=== PATIENT | female | born 1940 | race Caucasian/White ===

== ENCOUNTER 2017-02-03 16:12 | Emergency (ER) | payer OTHER ==
[~2017-02-03] VITALS: Ht 160 cm; Wt 59.0 kg
[2017-02-03] MEDS ORDERED: fentaNYL PF VIAL 100 MCG/2 ML VIAL IV ONE (16:45)
[2017-02-03] MEDS ORDERED: ONDANSETRON PF 4 MG/2 ML VIAL. IV ONE ×2 (16:45→18:15)
[2017-02-03 16:59] LABS: INR 3.1 (0.8-1.1); PROTHROMBIN TIME PATIENT 29.7 SEC (11.7-14.0)
[2017-02-03 17:06] LABS: HEMATOCRIT 38.7 % (36.0-47.0); HEMOGLOBIN 12.9 g/dL (12.0-15.5); WHITE BLOOD COUNT 8.3 x10^3/uL (4.0-11.0)
[2017-02-03 17:17] LABS: CREATININE 0.8 mg/dL (0.6-1.0); GFR 69.6; POTASSIUM 4.2 mmol/L (3.5-5.1)
--- NOTE | 2017-02-03 17:32 | ED.ADGEN ---
Past Medical History Past Medical History: COPD, Diabetes-Type II, Hypertension Past Surgical History: No Surgical History Alcohol Use: None Drug Use: None Adult General Chief Complaint Chief Complaint: MECHANICAL FALL HPI HPI Patient is a 76 year old with history of paroxysmal A. fib currently on Coumadin, COPD and hypertension who presents with mechanical fall while outdoors. Patient fell landing on her left arm and striking her head off of steps. Patient states she caught her foot on her steps while attempting to walk indoors. Denies loss of consciousness or headache. Patient has superficial abrasion over forehead. She reports left anterior shoulder/proximal humeral pain , tenderness. There is no gross deformity or subluxation. Range of motion testing is limited due to patient pain. Patient reports posterior neck pain, denies chest pain, abdominal pain, hip pain or lower extremity pain. Patient denies any medical symptoms prior to fall. No other acute injuries or complaints.] Review of Systems Review of Systems Review symptoms as per. All other review symptoms are negative. Current Medications Current Medications Current Medications Medications (Trade) Dose Ordered Sig/[facility] Start Time Stop Time Status Last Admin Dose Admin Fentanyl Citrate (Fentanyl 2ml Vial) 50 mcg 1X ONCE 02/03/17 16:45 02/03/17 16:46 DC 02/03/17 16:41 50 MCG Ondansetron HCl (Zofran) 4 mg 1X ONCE 02/03/17 18:15 02/03/17 18:16 DC 02/03/17 18:12 4 MG Allergies Allergies Allergies Coded Allergies Type Severity Reaction Last Updated Verified phenazopyridine Allergy Intermediate 12/07/15 Yes Physical Exam Physical Exam Constitutional: Well developed, well nourished, no acute distress, non-toxic appearance. HENT: Normocephalic, atraumatic, bilateral external ears normal, oropharynx moist. Eyes: PERRLA, EOMI. Neck: Normal range of motion, midline upper cervical pain, no tenderness swelling or step-off. Cardiovascular:Heart rate regular rhythm, no murmur. Lungs & Thorax: Bilateral breath sounds clear to auscultation, no subcutaneous emphysema, crepitus. Abdomen: Bowel sounds normal, soft, no tenderness. Skin: Warm, superficial skin tears without active bleeding. Back: No midline spinal tenderness. Extremities: Left shoulder/humerus pain, tenderness, range of motion testing not performed secondary to patient discomfort. No obvious deformity or dislocation. No posterior elbow, forearm or wrist pain or tenderness or deformity. No hip pain or tenderness. Neurologic: Alert and oriented X 3, normal motor function, normal sensory function, no focal deficits noted. Psychologic: Affect normal, judgement normal, mood normal. Current Patient Data Vital Signs Vital Signs Date Time Temp Pulse Resp B/P (MAP) Pulse Ox O2 Delivery O2 Flow Rate FiO2 02/03/17 19:00 77 17 186/79 (114) 97 Room Air 02/03/17 16:19 98.5 98.5 Lab Values Laboratory Tests Test 02/03/17 16:28 02/03/17 17:00 Prothrombin Time 29.7 SEC (11.7-14.0) H Prothrombin Time INR 3.1 (0.8-1.1) H White Blood Count 8.3 x10^3/uL (4.0-11.0) Hemoglobin 12.9 g/dL (12.0-15.5) Hematocrit 38.7 % (36.0-47.0) Platelet Count 204 x10^3/uL (140-400) Sodium Level 144 mmol/L (136-145) Potassium Level 4.2 mmol/L (3.5-5.1) Chloride Level 107 mmol/L (98-107) Carbon Dioxide Level 32 mmol/L (21-32) Anion Gap 5 (6-14) L Blood Urea Nitrogen 15 mg/dL (7-20) Creatinine 0.8 mg/dL (0.6-1.0) Estimated GFR (Cockcroft-Gault) 69.6 Glucose Level 169 mg/dL (70-99) H Calcium Level 10.0 mg/dL (8.5-10.1) Laboratory Tests 02/03/17 17:00 Laboratory Tests 02/03/17 17:00 EKG EKG [] Radiology/Procedures Radiology/Procedures [CT head/cervical spine: no acute intracranial or cervical spine injury. Left shoulder/chest x-ray: Left humeral neck fracture, no obvious thoracic injury.] Course & Med Decision Making Course & Med Decision Making Pertinent Labs and Imaging studies reviewed. (See chart for details) [Patient with left shoulder fracture without neurovascular deficitmechanical fall. Patient placed in sling for comfort. Pain control. CT head/cervical spine , chest x-ray does not show evidence of injury. Patient referred to PCP for further guidance regarding continuance of coumadin and on-call orthopedic surgeon. typical closed head injury instructions and return precautions reviewed.Patient and family members verbalized understanding and agreement discharge instructions prior to departure.] Hector Disclaimer Dragon Disclaimer This electronic medical record was generated, in whole or in part, using a voice recognition dictation system. ALIZE MCDANIELS DO Feb 03, 2017 17:32
--- NOTE | 2017-02-03 18:14 | RAD ---
CT Head W/O Contrast: History: TRAUMA, FALL, HIT HEAD, NECK PAIN, NO PRIORS Comparison: none Axial images were obtained without contrast. The parikh and white matter appears normal and symmetrical for the patients age. There is no mass effect, extraaxial fluid collections or hydrocephalus. There is no gross bleed. There is no focal loss of parikh-white matter distinction to suggest acute ischemia, i.e. stroke. Impression: No acute findings. End impression CT C-Spine without contrast: Clinical History: TRAUMA, FALL, HIT HEAD, NECK PAIN, NO PRIORS Technique: Axial helical images of the cervical spine were obtained without contrast, axial coronal and sagittal reconstruction was performed. Findings: There is no loss of vertebral body stature. There is no prevertebral soft tissue swelling. The vertebral bodies are well aligned. The C1-C2 relationship is normal. The visualized osseous structures appear normal. Evaluation of the central canal is limited without contrast. There is multiple posterior disc bulges resulting in flattening of the thecal sac. There does not appear to be gross flattening of the cervical cord. There is facet arthropathy and a posterior lateral osteophytic ridge resulting in severe narrowing of the right neuroforamen at C3-C4. Impression: No acute findings. Clinical correlation suggested. PQRS Compliance Statement: One or more of the following individualized dose reduction techniques were utilized for this examination: 1. Automated exposure control 2. Adjustment of the mA and/or kV according to patient size 3. Use of iterative reconstruction technique Electronically signed by: Los Jean III, MD (02/03/2017 6:11 PM) [facility]
[2017-02-03 19:00] VITALS: BP 186/79
--- NOTE | 2017-02-04 09:18 | RAD ---
Indication trauma. Fall. Left-sided pain. A single view of the chest was obtained and is compared to an examination 12/07/2015. Somewhat tortuous thoracic aorta is noted similar to the previous exam. There is no consolidated pneumonia. Heart size is unchanged. There is no congestive heart failure. There is no pneumothorax or significant pleural fluid. A definite bony abnormality is not seen. IMPRESSION: No acute or focal process is seen in the chest
--- NOTE | 2017-02-04 09:26 | RAD ---
Indication pain secondary to a fall. Internally and externally rotated views of both shoulders as well as a Y view were obtained. Views of the right shoulder demonstrate minimal degenerative change at the AC joint. A fracture or acute finding is not apparent. Views of the left shoulder demonstrate a mildly impacted, traumatic, fracture of the humeral neck. IMPRESSION: No acute finding seen on the right. Mildly impacted left humeral neck fracture
--- NOTE | 2017-02-04 09:43 | RAD ---
Indication fall, pain. AP and lateral views of the left humerus were obtained. Known traumatic fracture involving the left humeral neck is noted. No additional bony abnormality is seen. IMPRESSION: Fractured left humeral neck
== END 2017-02-03 19:25 | disposition home or self-care (01) ==
LOC: ER 16:12
DX: S42.92XA Fracture of left shoulder girdle, part unspecified, initial encounter for closed fracture (principal); S00.91XA Abrasion of unspecified part of head, initial encounter; M54.2 Cervicalgia; E11.9 Type 2 diabetes mellitus without complications; I10 Essential (primary) hypertension; I48.0 Paroxysmal atrial fibrillation; J44.9 Chronic obstructive pulmonary disease, unspecified; W10.9XXA Fall (on) (from) unspecified stairs and steps, initial encounter; Y93.89 Activity, other specified; Y92.89 Other specified places as the place of occurrence of the external cause; Y99.8 Other external cause status; Z88.8 Allergy status to other drugs, medicaments and biological substances
CPT/HCPCS: 36415; 70450; 71010; 72125; 73030; 73060; 80048; 85027; 85610; 96374; 96375; 96376; 99285; J2405; J3010

== ENCOUNTER → 2018-09-25 | Outpatient (CLI) | payer OTHER ==
[~2018-09-25] MED LIST: REGADENOSON 0.4 MG/5 ML DISP.SYRIN. IV ONE
--- NOTE | 2018-09-26 11:47 | CARD ---
MR#: [id number] Date of Study: 09/26/2018 Ordering Physician: CLAYTON CORBIN, Referring Physician: CLAYTON CORBIN, Tech: Lexie Hunt APPROVED REPORT EXAM: Two-dimensional and M-mode echocardiogram with Doppler and color Doppler. Other Information Quality : AverageHR: 75bpm INDICATION Atrial Fibrillation 2D DIMENSIONS RVDd4.1 (2.9-3.5cm)Left Atrium(2D)4.7 (1.6-4.0cm) IVSd1.3 (0.7-1.1cm)Aortic Root(2D)3.4 (2.0-3.7cm) LVDd4.7 (3.9-5.9cm)LVOT Diameter2.2 (1.8-2.4cm) PWd1.3 (0.7-1.1cm)LVDs2.9 (2.5-4.0cm) FS (%) 39.0 %SV71.8 ml LVEF(%)69.4 (>50%) Aortic Valve AoV Peak Juan Manuel.132.2cm/sAoV VTI28.9cm AO Peak GR.7.0mmHgLVOT Peak Juan Manuel.73.3cm/s LVOT VTI 15.20cmAO Mean GR.4mmHg LUIZ (VMAX)1.70hv0XNG (VTI)2.04cm2 Mitral Valve MV E Xkdwjqtn08.1cm/sMV DECEL RGHU781rc MV A Owwhkpiz79.3cm/sMV DIU97bq E/A Ratio0.6MVA (PHT)4.99cm2 TDI E/Lateral E'5.6E/Medial E'7.7 Pulmonary Valve PV Peak Ufentzqs492.2cm/sPV Peak Grad.7mmHg Tricuspid Valve TR P. Vsqmkeqp540ai/sRAP QDZXMNUR7awVd TR Peak Gr.99lqXqRMIR08ptDe Pulmonary Vein S1 Gaztneya48.6cm/sD2 Ocwganae62.3cm/s PVa matmpyvi768lzpc LEFT VENTRICLE The left ventricle is normal size. There is moderate concentric left ventricular hypertrophy. The lef t ventricular systolic function is normal. The Ejection Fraction is 60-65%. There is normal LV segmen geri wall motion. Transmitral Doppler flow pattern is Grade I-abnormal relaxation pattern. RIGHT VENTRICLE The right ventricle is normal size. There is normal right ventricular wall thickness. The right ventr icular systolic function is normal. ATRIA The left atrium size is normal. The right atrium is mildly dilated. The atrial septum is aneurysmal. AORTIC VALVE The aortic valve is thickened but opens well. Doppler and Color Flow revealed no significant aortic r egurgitation. There is no significant aortic valvular stenosis. MITRAL VALVE The mitral valve is normal in structure and function. There is no evidence of mitral valve prolapse. There is no mitral valve stenosis. Doppler and Color-flow revealed trace mitral regurgitation. TRICUSPID VALVE The tricuspid valve is normal in structure and function. Doppler and Color Flow revealed trace to mil d tricuspid regurgitation. There is no tricuspid valve stenosis. PULMONIC VALVE The pulmonary valve is normal in structure and function. Doppler and Color Flow revealed trace to mil d pulmonic valvular regurgitation. GREAT VESSELS The aortic root is normal in size. The IVC is normal in size and collapses >50% with inspiration. PERICARDIAL EFFUSION There is no evidence of significant pericardial effusion. Critical Notification Critical Value: No <Conclusion> The left ventricular systolic function is normal. The Ejection Fraction is 60-65%. There is normal LV segmental wall motion. Transmitral Doppler flow pattern is Grade I-abnormal relaxation pattern. Trace mitral regurgitation. Trace to mild tricuspid regurgitation. There is no evidence of significant pericardial effusion. Signed by : Clayton Corbin, Electronically Approved : 09/26/2018 11:46:30
--- NOTE | 2018-09-26 12:22 | RAD ---
MR#: [id number] Date of Study: 09/26/2018 Ordering Physician: CLAYTON YUN, Referring Physician: OXANA SHAH Tech: RT Angelina (Eleazar) (N) APPROVED REPORT Test Type: Pharmacological Stress Nurse/Tech: Rodrigo Navarrete RN Test Indications: paraxysmal afib Cardiac History: a fib, CHF, HTN Medical History: COPD Resting ECG: Afib; baseline noted slight ST depression in leads V2, V3, SR with PAC's Resting Heart Rate: 71 bpm Pretest Chest Pain: No chest pain Nurse/Tech Notes Irregular heart tones. Lungs sound clear. Consent: The procedure was explained to the patient in lay terms. Informed consent was witnessed. Supa eout was entered into [employer]. History and Stress Test performed by [facility]. Details Pharmacologic stress testing was performed using 0.4mg per 5ml of regadenoson given intravenously ove r 7-10 seconds. Stress Symptoms Pt c/o chest pressure 5/10 in stage R at 00:55; decreased 3/10 at stage R at 01:55; resolved by stage R at 04:55. Pt also c/o PEREZ and feeling flushed, and SOA. POST EXERCISE Reason for Termination: Infusion complete Max HR: 87 bpm Max Blood Pressure: 161/56mmHg Blood Pressure response to exercise: Normal blood pressure response during stress. Heart Rate response to exercise: normal Chest Pain: Yes. see stress symptoms above Arrhythmia: No. [address] Change: Yes. ST depression and elevation slight increase from baseline INTERPRETATION Stress EKG Conclusion: Baseline EKG showed sinus rhythm with PAC's. Non-diagnostic changes at peak s tress. No arrhythmias. Imaging Protocol IMAGE PROTOCOL: Rest Tc-99m/stress Tc-99m 2 days Rest: Stress: Viability: Radiopharm.Tc99m ZivrkokisVp68p Sestamibi Utcn12iKx 33mCi Duration 15min. 15min. Img Date 09/25/2018 09/26/2018 Inj-Img Usym04mcm. 60min. Rest Admin Site:IV - Right ForearmAdministrator:PAT Miller, ARRT (R)(N) Stress Admin Site: Endoscopy Rn: Constantino Reyes [facility] STRESS DATA End Diast. Vol.143.0mlLVEDV index BSA70.0ml End Syst. Vol.64.0mlLVESV index BSA32.0ml Myocardial Trpk602.0gEject. Cfswjuhy10.0% Stress Scores Regional WT2.00Summed WT18.00 Regional WM0.00Summed WM5.00 Study quality was good. Left Ventricular size was Normal at Rest and Stress. Lung uptake was . Left Ventricular ejection fraction is 55%. The rest and stress images show normal perfusion, normal contraction and thickening. LV Perf. Quant 17 Seg. SSS3.00 17 Seg. SRS0.00 17 Seg. SDS3.00 Stress Defect Extent (% LAD)0.00Rest Defect Extent (% LAD)0.00Rev. Defect Extent (% LAD)0.00 Stress Defect Extent (% LCX) 2.50Rest Defect Extent (% LCX)0.00Rev. Defect Extent (% LCX)2.50 Stress Defect Extent (% RCA)14.40Rest Defect Extent (% RCA)0.00Rev. Defect Extent (% RCA)12.20 Stress Defect Extent (% STEPHANIA)5.20Rest Defect Extent (% STEPHANIA)0.00Rev. Defect Extent (% STEPHANIA)4.80 Conclusion 1. Regadenoson cardioisotope stress test did not show any evidence of ischemia or infarct. 2. Normal left ventricular systolic function with ejection fraction calculated at 55%. 3. Low risk for cardiac events. Signed by : Clayton Yun, Electronically Approved : 09/26/2018 12:21:45
== END | disposition home or self-care (01) ==
LOC: NM 08:07
PROVIDERS: ATTEND Internal Medicine Cardiovascular Disease
DX: I48.0 Paroxysmal atrial fibrillation (principal); I11.0 Hypertensive heart disease with heart failure; I50.9 Heart failure, unspecified; J44.9 Chronic obstructive pulmonary disease, unspecified; I49.3 Ventricular premature depolarization; R00.8 Other abnormalities of heart beat
CPT/HCPCS: 78452; 96374; A9500; 93017; 93306; 96376; J2785

== ENCOUNTER → 2019-05-06 | Outpatient (CLI) | payer OTHER ==
--- NOTE | 2019-05-06 11:03 | RAD ---
MR#: [id number] Date of Study: 05/06/2019 Ordering Physician: CLAYTON YUN, Referring Physician: CLAYTON YUN, Tech: Moises Ly MBA, RDMS, RVT, RDCS, RTR APPROVED REPORT Patient Location : OUT-PATIENT Indications Lower Extremity Edema : Bilateral Findings Technically difficult study. The right great saphenous vein measures 4.5 mm in the left great saphenous vein measures 8 mm. Based on color Doppler and spectral images no obvious evidence of reflux is noted. The bilateral lesser sap henous veins do not show any evidence of reflux. Critical Notification Critical Value: No <Conclusion> No significant reflux noted in the bilateral greater and lesser saphenous veins Signed by : Venancio Duenas, Electronically Approved : 05/06/2019 11:03:20
== END | disposition home or self-care (01) ==
LOC: US 09:41
PROVIDERS: ATTEND Internal Medicine Cardiovascular Disease
DX: R60.0 Localized edema (principal)
CPT/HCPCS: 93970

== ENCOUNTER 2019-07-15 20:23 | Inpatient (IN) | payer MEDICARE, OTHER ==
[~2019-07-15] VITALS: Ht 160 cm; Wt 106.2 kg
[2019-07-15] MEDS ORDERED: ASPIRIN CHEWABLE 81 MG TABLET. PO ONE (20:30)
[2019-07-15] MEDS: NITROGLYCERIN SUBLINGUAL 0.4 MG BOTTLE OF 25. SL PRN ×3 (21:10→21:20)
[2019-07-15 21:57] LABS: BASO # 0.1 x10^3/uL (0.0-0.2); BASO % 1 % (0-3); EOS # 0.2 x10^3/uL (0.0-0.7); EOS % 3 % (0-3); HEMATOCRIT 39.7 % (36.0-47.0); LYMPH # 1.3 x10^3/uL (1.0-4.8); LYMPH % 20 % (24-48); MEAN CORPUSCULAR HEMOGLOBIN 31 pg (25-35); MEAN CORPUSCULAR HGB CONC 33 g/dL (31-37); MEAN CORPUSCULAR VOLUME 93 fL (79-100); MONO # 0.7 x10^3/uL (0.0-1.1); MONO % 11 % (0-9); NEUT % 65 % (31-73); PLATELET COUNT 214 x10^3/uL (140-400); RED BLOOD COUNT 4.26 x10^6/uL (3.50-5.40); RED CELL DISTRIBUTION WIDTH 15.3 % (11.5-14.5); WHITE BLOOD COUNT 6.3 x10^3/uL (4.0-11.0)
--- NOTE | 2019-07-15 21:58 | PHYS DOC ---
Past Medical History Past Medical History: A-Fib, COPD, Diabetes-Type II, DVT, Hypertension Past Surgical History: No Surgical History Alcohol Use: None Drug Use: None Adult General Chief Complaint Chief Complaint: CHEST PAIN HPI HPI 79-year-old female presents to the emergency department with complaints of chest pressure, shortness of breath. She states this started this afternoon and just has not went away. Patient's underlying history of atrial fibrillation, DVT, COPD, hypertension, diabetes. She is on chronic anticoagulation. He makes her pain worse, nothing makes her pain better. Attempted nitroglycerin in the emergency department however has had 3 without improvement. Morphine 2 mg IVx 1 in ER Review of Systems Review of Systems Constitutional: Denies fever or chills [] Respiratory: Denies cough or shortness of breath [] Cardiovascular: No additional information not addressed in HPI [] GI: Denies abdominal pain, nausea, vomiting, bloody stools or diarrhea [] : Denies dysuria or hematuria [] Musculoskeletal: Denies back pain or joint pain [] Neurologic: Denies headache, focal weakness or sensory changes [] All other systems were reviewed and found to be within normal limits, except as documented in this note. Current Medications Current Medications Current Medications Medications (Trade) Dose Ordered Sig/[facility] Start Time Stop Time Status Last Admin Dose Admin Aspirin (Children'S Aspirin) 324 mg 1X ONCE 07/15/19 20:30 07/15/19 20:33 DC 07/15/19 21:01 324 MG Morphine Sulfate (Morphine Sulfate) 2 mg 1X ONCE 07/15/19 22:30 07/15/19 22:31 DC Nitroglycerin (Nitrostat) 0.4 mg PRN Q5MIN PRN 07/15/19 20:30 07/16/19 20:29 07/15/19 21:20 0.4 MG Allergies Allergies Allergies Coded Allergies Type Severity Reaction Last Updated Verified phenazopyridine Allergy Intermediate 12/07/15 Yes Physical Exam Physical Exam Constitutional: Well developed, well nourished, no acute distress, non-toxic ap pearance. [] HENT: Normocephalic, atraumatic, bilateral external ears normal, oropharynx moist, no oral exudates, nose normal. [] Eyes: PERRLA, EOMI, conjunctiva normal, no discharge. [] [] Cardiovascular:Heart rate regular rhythm, no murmur [] Lungs & Thorax: Bilateral breath sounds clear to auscultation [] Abdomen: Bowel sounds normal, soft, no tenderness, no masses, no pulsatile masses. [] Skin: Warm, dry, no erythema, no rash. [] Extremities: No tenderness, no edema. [] Neurologic: Alert and oriented X 3, no focal deficits noted. [] Psychologic: Affect normal, judgement normal, mood normal. [] Current Patient Data Vital Signs Vital Signs Date Time Temp Pulse Resp B/P (MAP) Pulse Ox O2 Delivery O2 Flow Rate FiO2 07/15/19 21:20 74 185/82 07/15/19 20:41 97.8 22 92 Room Air 97.8 Lab Values Laboratory Tests Test 07/15/19 21:30 White Blood Count 6.3 x10^3/uL (4.0-11.0) Red Blood Count 4.26 x10^6/uL (3.50-5.40) Hemoglobin 13.0 g/dL (12.0-15.5) Hematocrit 39.7 % (36.0-47.0) Mean Corpuscular Volume 93 fL (79-100) Mean Corpuscular Hemoglobin 31 pg (25-35) Mean Corpuscular Hemoglobin Concent 33 g/dL (31-37) Red Cell Distribution Width 15.3 % (11.5-14.5) H Platelet Count 214 x10^3/uL (140-400) Neutrophils (%) (Auto) 65 % (31-73) Lymphocytes (%) (Auto) 20 % (24-48) L Monocytes (%) (Auto) 11 % (0-9) H Eosinophils (%) (Auto) 3 % (0-3) Basophils (%) (Auto) 1 % (0-3) Neutrophils # (Auto) 4.0 x10^3/uL (1.8-7.7) Lymphocytes # (Auto) 1.3 x10^3/uL (1.0-4.8) Monocytes # (Auto) 0.7 x10^3/uL (0.0-1.1) Eosinophils # (Auto) 0.2 x10^3/uL (0.0-0.7) Basophils # (Auto) 0.1 x10^3/uL (0.0-0.2) Prothrombin Time 23.7 SEC (11.7-14.0) H Prothrombin Time INR 2.1 (0.8-1.1) H Sodium Level 141 mmol/L (136-145) Potassium Level 4.0 mmol/L (3.5-5.1) Chloride Level 105 mmol/L (98-107) Carbon Dioxide Level 33 mmol/L (21-32) H Anion Gap 3 (6-14) L Blood Urea Nitrogen 11 mg/dL (7-20) Creatinine 0.7 mg/dL (0.6-1.0) Estimated GFR (Cockcroft-Gault) 80.5 BUN/Creatinine Ratio 16 (6-20) Glucose Level 141 mg/dL (70-99) H Calcium Level 10.3 mg/dL (8.5-10.1) H Magnesium Level Pending Total Bilirubin Pending Aspartate Amino Transferase (AST) Pending Alanine Aminotransferase (ALT) Pending Alkaline Phosphatase Pending Troponin I Quantitative < 0.017 ng/mL (0.000-0.055) UZ-Nxo-G-Type Natriuretic Peptide 492 pg/mL (0-449) H Total Protein Pending Albumin Pending Albumin/Globulin Ratio Pending Laboratory Tests 07/15/19 21:30 Laboratory Tests 07/15/19 21:30 EKG EKG EKG reviewed, 2032 - no stemi, NSR, 76, LAD[] Radiology/Procedures Radiology/Procedures [] Course & Med Decision Making Course & Med Decision Making Pertinent Labs and Imaging studies reviewed. (See chart for details) []79-year-old female presents to the emergency department with complaints of chest pressure, shortness of breath. She states this started this afternoon and just has not went away. Patient's underlying history of atrial fibrillation, DVT, COPD, hypertension, diabetes. She is on chronic anticoagulation. He makes her pain worse, nothing makes her pain better. Attempted nitroglycerin in the emergency department however has had 3 without improvement. Morphine 2 mg IVx 1 in ER Labs/Imaging reviewed Trop within normal limits EKG reviewed, no acute findings Patietn provided with NTG x 3 without relief, Morphine 2mg IV x1 Reassessment - pain improved HEART Score 6 Recommend observation, trend cardiac enzymes Dragon Disclaimer Dragon Disclaimer This electronic medical record was generated, in whole or in part, using a voice recognition dictation system. The HEART Score for CP Pts HEART Score for Chest Pain: HEART Score for Chest Pain Response (Comments) Value History Moderately Suspicious 1 ECG Nonspecific Repolarizatio 1 Age > 65 2 Risk Factors >3 Risk Factors or Hx CAD 2 Troponin < Normal Limit 0 Total 6 Risk Factors: Risk Factors: DM, Current or recent (<one month) smoker, HTN, HLP, family history of CAD, obesity. Risk Scores: Score 0 - 3: 2.5% MACE over next 6 weeks - Discharge Home Score 4 - 6: 20.3% MACE over next 6 weeks - Admit for Clinical Observation Score 7 - 10: 72.7% MACE over next 6 weeks - Early Invasive Strategies Departure Departure Impression: Primary Impression: Chest pain Additional Impressions: Hypertension Diabetes Disposition: 09 ADMITTED INPATIENT Admitting Physician: HIMRenzo Condition: STABLE Referrals: LEONCIO OSEGUERA MD (PCP) Problem Qualifiers Primary Impression: Chest pain Chest pain type: unspecified Qualified Codes: R07.9 - Chest pain, unspecified Additional Impressions: Hypertension Hypertension type: essential hypertension Qualified Codes: I10 - Essential (primary) hypertension Diabetes Diabetes mellitus type: other specified (including IGGY) Diabetes mellitus half-way insulin use: unspecified intermediate school teacher insulin use status Diabetes mellitus complication status: without complication Qualified Codes: E13.9 - Other specified diabetes mellitus without complications HILLARY DA SILVA MD Jul 15, 2019 21:58
[2019-07-15 22:09] LABS: CALCIUM 10.3 mg/dL (8.5-10.1); CREATININE 0.7 mg/dL (0.6-1.0); GFR 80.5
[2019-07-15 22:14] LABS: ALBUMIN/GLOBULIN RATIO 0.8 (1.0-1.7); MAGNESIUM 1.9 mg/dL (1.8-2.4); TOTAL PROTEIN 6.9 g/dL (6.4-8.2)
[2019-07-15 22:19] LABS: PROTHROMBIN TIME PATIENT 23.7 SEC (11.7-14.0)
[2019-07-15] MEDS ORDERED: MORPHINE SULFATE 2 MG/ML VIAL. IV ONE (22:30)
[2019-07-15 22:47] LABS: TOTAL BILIRUBIN 0.7 mg/dL (0.2-1.0)
[2019-07-15] MEDS ORDERED: MORPHINE SULFATE 2 MG/ML VIAL. IV PRN (23:30)
[2019-07-15] MEDS ORDERED: NITROGLYCERIN SUBLINGUAL 0.4 MG BOTTLE OF 25. SL PRN (23:30)
[2019-07-15] MEDS ORDERED: ACETAMINOPHEN 325 MG TABLET. PO PRN (23:30)
[2019-07-15] MEDS ORDERED: ONDANSETRON PF 4 MG/2 ML VIAL. IV PRN (23:30)
[2019-07-16] VITALS (8 sets, daily range): BP systolic 127–176; BP diastolic 41–79
[2019-07-16] MEDS ORDERED: FURO40TA4 PO (01:31)
[2019-07-16] MEDS ORDERED: POTA10TA12 PO (01:31)
[2019-07-16] MEDS ORDERED: LOSA-73 PO (01:31)
[2019-07-16] MEDS ORDERED: CALC-496 PO (01:31)
[2019-07-16] MEDS ORDERED: WARF6TAB47 PO (01:31)
[2019-07-16] MEDS ORDERED: SIMV10TA15 PO (01:31)
[2019-07-16] MEDS ORDERED: ALEN70TA6 PO (01:31)
[2019-07-16] MEDS ORDERED: DIPH25TA24 PO (01:31)
[2019-07-16 02:18] LABS: BASO % 0 % (0-3); EOS # 0.2 x10^3/uL (0.0-0.7); EOS % 4 % (0-3); HEMATOCRIT 37.5 % (36.0-47.0); HEMOGLOBIN 12.5 g/dL (12.0-15.5); LYMPH # 1.1 x10^3/uL (1.0-4.8); LYMPH % 21 % (24-48); MEAN CORPUSCULAR HEMOGLOBIN 30 pg (25-35); MEAN CORPUSCULAR HGB CONC 33 g/dL (31-37); MEAN CORPUSCULAR VOLUME 91 fL (79-100); MONO # 0.7 x10^3/uL (0.0-1.1); MONO % 12 % (0-9); NEUT # 3.5 x10^3/uL (1.8-7.7); NEUT % 63 % (31-73); PLATELET COUNT 191 x10^3/uL (140-400); RED CELL DISTRIBUTION WIDTH 14.7 % (11.5-14.5); WHITE BLOOD COUNT 5.5 x10^3/uL (4.0-11.0)
[2019-07-16 02:47] LABS: ALBUMIN 2.8 g/dL (3.4-5.0); ALBUMIN/GLOBULIN RATIO 0.8 (1.0-1.7); CREATININE 0.7 mg/dL (0.6-1.0); GFR 80.5; TOTAL BILIRUBIN 0.8 mg/dL (0.2-1.0); TOTAL PROTEIN 6.3 g/dL (6.4-8.2)
--- NOTE | 2019-07-16 07:59 | RAD ---
PORTABLE CHEST 1V History: Chest pain. Comparison with 02/03/2017. Images available but no report from that study. The cardiomediastinal silhouette appears slightly wider than at that time. Aorta is tortuous and calcified, and ectatic. The overall morphology is similar. No evidence of pneumothorax. No pleural effusion. Diffuse interstitial opacities in both lungs, grossly similar to prior study, likely due to chronic fibrosis. No focal airspace consolidation is seen. No acute bone process is identified. IMPRESSION: 1. Mild enlargement of the cardiac silhouette. 2. Aortic tortuosity and ectasia. 3. Interstitial opacities are likely chronic fibrosis. 4. No consolidating infiltrate. Electronically signed by: Jordin Arvizu MD (07/16/2019 7:56 AM) [facility]
[2019-07-16] MEDS ORDERED: diphenhydrAMINE HCL 25 MG CAPSULE PO PRN (11:45)
[2019-07-16] MEDS: POTASSIUM CHLORIDE 10 MEQ TABLET.ER. PO SCH (13:03)
[2019-07-16] MEDS: FUROSEMIDE 40 MG TABLET. PO SCH (13:03)
[2019-07-16] MEDS: CALCIUM CARB/VIT D3 500/200 TABLET. PO SCH (13:03)
--- NOTE | 2019-07-16 13:03 | PDOC1 ---
History and Physical Date of Admission: Date of Admission DATE: 07/16/19 TIME: 12:57 Chief Complaint: Problems: (1) UTI (urinary tract infection) (2) Diabetes (3) Chest pain (4) Hypertension (5) Afib Chief Complain: Chest pain History of Present Illness: HPI: This is a pleasant elderly female who presented to the ER with chest pain with associated shortness of breath She states this started this afternoon and just has not went away. Patient's underlying history of atrial fibrillation, DVT, COPD, hypertension, diabetes. She is on chronic anticoagulation. He makes her pain worse, nothing makes her pain better. Attempted nitroglycerin in the emergency department however has had 3 without improvement. Morphine 2 mg IVx 1 in ER Past Medical/Surgical History: PMH/PSH: Past Medical History: A-Fib, COPD, Diabetes-Type II, DVT, Hypertension Past Surgical History: Pericardial window Alcohol Use: None Drug Use: None Allergies: Allergies: Coded Allergies: phenazopyridine (Verified Allergy, Intermediate, 12/07/15) Family History: Family History: Coronary disease Social History: Social Hisoty: She doesn't drink smoke or take drugs she is retired Current Medications: Current Medications Current Medications Aspirin (Children'S Aspirin) 324 mg 1X ONCE PO Last administered on 07/15/19at 21:01; Start 07/15/19 at 20:30; Stop 07/15/19 at 20:33; Status DC Nitroglycerin (Nitrostat) 0.4 mg PRN Q5MIN PRN SL CP RATING > 1/10 Last administered on 07/15/19at 21:20; Start 07/15/19 at 20:30; Stop 07/15/19 at 23:22; Status DC Morphine Sulfate (Morphine Sulfate) 2 mg 1X ONCE IV ; Start 07/15/19 at 22:30; Stop 07/15/19 at 22:31; Status DC Ondansetron HCl (Zofran) 4 mg PRN Q8HRS PRN IV NAUSEA/VOMITING 1ST CHOICE; Start 07/15/19 at 23:30; Stop 07/16/19 at 23:29 Morphine Sulfate (Morphine Sulfate) 2 mg PRN Q2HR PRN IV SEVERE PAIN 7-10; Start 07/15/19 at 23:30; Stop 07/16/19 at 23:29 Acetaminophen (Tylenol) 650 mg PRN Q4HRS PRN PO FEVER; Start 07/15/19 at 23:30; Stop 07/16/19 at 23:29 Nitroglycerin (Nitrostat) 0.4 mg PRN Q5MIN PRN SL CHEST PAIN; Start 07/15/19 at 23:30; Stop 07/16/19 at 23:29 Furosemide (Lasix) 40 mg DAILY PO ; Start 07/16/19 at 12:00 Losartan Potassium (Cozaar) 25 mg DAILY PO ; Start 07/16/19 at 12:00 Potassium Chloride (Klor-Con) 10 meq DAILY PO ; Start 07/16/19 at 12:00 Simvastatin (Zocor) 10 mg QHS PO ; Start 07/16/19 at 21:00 Non-Formulary Medication (Alendronate Sodium ) 1 tab WEEKLY PO ; Start 07/23/19 at 09:00; Status UNV Calcium/Vitamin D (Oscal D 500mg/ 200uts) 1 tab DAILY PO ; Start 07/16/19 at 12:00 Diphenhydramine HCl (Benadryl) 25 mg PRN Q6HRS PRN PO ITCHING; Start 07/16/19 at 11:45 Warfarin Sodium (Coumadin) 6 mg DAILY16 PO ; Start 07/16/19 at 16:00 Warfarin Sodium (Coumadin Per Pharmacy) 1 each PRN DAILY PRN [facility] SEE COMMENTS; Start 07/16/19 at 12:00 Active Scripts Active Reported Alendronate Sodium 70 Mg Tablet 1 Tab PO WEEKLY Diphenhydramine Hcl 25 Mg Tablet 25 Mg PO PRN Q6-8HRS PRN Simvastatin 10 Mg Tablet 1 Tab PO QHS Warfarin Sodium 6 Mg Tablet 6 Mg PO DAILY Calcium 600 + Vit D3 Tablet (Calcium Carbonate/Vitamin D3) 1 Each Tablet 1 Tab PO DAILY 30 Days Losartan Potassium 50 Mg Tablet 25 Mg PO DAILY Furosemide 40 Mg Tablet 1 Tab PO DAILY Klor-Con M10 (Potassium Chloride) 10 Meq Tab.er.prt 10 Meq PO DAILY ROS: Review of Systems Review of System REVIEW OF SYSTEMS: GENERAL: Denies weakness SKIN: No bruising, hair changes or rashes. EYES: No blurred, double or loss of vision. NOSE AND THROAT: No history of nosebleeds, hoarseness or sore throat. HEART: Has some chest pain with exertion LUNGS: Complains of mild shortness of breath although is improving this morning GASTROINTESTINAL: Denies changes in appetite, nausea, vomiting, diarrhea or constipation. GENITOURINARY: No history of frequency, urgency, hesitancy or nocturia. NEUROLOGIC: Denies history of numbness, tingling, tremor or weakness. PSYCHIATRIC: No history of panic, anxiety or depression. ENDOCRINE: No history of heat or cold intolerance, polyuria or polydipsia. EXTREMITIES: Complains of lower extremity swelling and some venous stasis changes states she had a clot in the left leg previously in her legs remain like this and this is chronic for her Physical Exam: Vital Signs: Vital Signs Date Time Temp Pulse Resp B/P (MAP) Pulse Ox O2 Delivery O2 Flow Rate FiO2 07/16/19 11:00 97.9 55 22 161/61 (94) 92 Room Air 97.9 Physcial Exam: GEN: No apparent distress. Alert and oriented HEENT: Normal cephalic, atraumatic, external auditory canals are patent EYES: Extraocular muscles are intact, pupil are equally round and reactive to light and accommodation MUSCULOSKELETAL: Well developed , well nourished, good range of motion ENDOCRINE: Ny thyromegaly was palpated LYMPHATICS: No cervical chain or axillary nodes were noted HEMATOPOIETIC: No bruising NECK: Supple, no JVD, no thyromegaly was noted LUNGS: Clear to auscultation in all lung shea without rhonchi or wheezing HEART: RRR, S!, S2 present. Peripheral pulses intact, no obvious murmurs noted ABDOMEN: Soft, nontender. Positive bowel sounds, no organomegaly, normal bowel sounds EXTREMITIES: The lower extremities are swollen about 2 out of 4 the left leg has some redness but she states this is chronic NEUROLOGIC: Normal speech and tone. A&O x 3, moves all extremities, no obvious focal deficits PSYCHIATRIC: Normal affect, normal mood. Stable SKIN: No ulcerations or rashes, good skin turgor, no jaundice VASCULAR: Good capillary refill, neurovascular bundle appears to be intact Labs: Labs: Laboratory Tests Test 07/15/19 21:30 07/16/19 02:10 07/16/19 05:15 White Blood Count 6.3 x10^3/uL (4.0-11.0) 5.5 x10^3/uL (4.0-11.0) Red Blood Count 4.26 x10^6/uL (3.50-5.40) 4.10 x10^6/uL (3.50-5.40) Hemoglobin 13.0 g/dL (12.0-15.5) 12.5 g/dL (12.0-15.5) Hematocrit 39.7 % (36.0-47.0) 37.5 % (36.0-47.0) Mean Corpuscular Volume 93 fL (79-100) 91 fL (79-100) Mean Corpuscular Hemoglobin 31 pg (25-35) 30 pg (25-35) Mean Corpuscular Hemoglobin Concent 33 g/dL (31-37) 33 g/dL (31-37) Red Cell Distribution Width 15.3 % (11.5-14.5) 14.7 % (11.5-14.5) Platelet Count 214 x10^3/uL (140-400) 191 x10^3/uL (140-400) Neutrophils (%) (Auto) 65 % (31-73) 63 % (31-73) Lymphocytes (%) (Auto) 20 % (24-48) 21 % (24-48) Monocytes (%) (Auto) 11 % (0-9) 12 % (0-9) Eosinophils (%) (Auto) 3 % (0-3) 4 % (0-3) Basophils (%) (Auto) 1 % (0-3) 0 % (0-3) Neutrophils # (Auto) 4.0 x10^3/uL (1.8-7.7) 3.5 x10^3/uL (1.8-7.7) Lymphocytes # (Auto) 1.3 x10^3/uL (1.0-4.8) 1.1 x10^3/uL (1.0-4.8) Monocytes # (Auto) 0.7 x10^3/uL (0.0-1.1) 0.7 x10^3/uL (0.0-1.1) Eosinophils # (Auto) 0.2 x10^3/uL (0.0-0.7) 0.2 x10^3/uL (0.0-0.7) Basophils # (Auto) 0.1 x10^3/uL (0.0-0.2) 0.0 x10^3/uL (0.0-0.2) Prothrombin Time 23.7 SEC (11.7-14.0) Prothromb Time International Ratio 2.1 (0.8-1.1) Sodium Level 141 mmol/L (136-145) 141 mmol/L (136-145) Potassium Level 4.0 mmol/L (3.5-5.1) 4.0 mmol/L (3.5-5.1) Chloride Level 105 mmol/L (98-107) 106 mmol/L (98-107) Carbon Dioxide Level 33 mmol/L (21-32) 33 mmol/L (21-32) Anion Gap 3 (6-14) 2 (6-14) Blood Urea Nitrogen 11 mg/dL (7-20) 10 mg/dL (7-20) Creatinine 0.7 mg/dL (0.6-1.0) 0.7 mg/dL (0.6-1.0) Estimated GFR (Cockcroft-Gault) 80.5 80.5 BUN/Creatinine Ratio 16 (6-20) 14 (6-20) Glucose Level 141 mg/dL (70-99) 134 mg/dL (70-99) Calcium Level 10.3 mg/dL (8.5-10.1) 10.0 mg/dL (8.5-10.1) Magnesium Level 1.9 mg/dL (1.8-2.4) Total Bilirubin 0.7 mg/dL (0.2-1.0) 0.8 mg/dL (0.2-1.0) Aspartate Amino Transf (AST/SGOT) 12 U/L (15-37) 13 U/L (15-37) Alanine Aminotransferase (ALT/SGPT) 10 U/L (14-59) 8 U/L (14-59) Alkaline Phosphatase 98 U/L (46-116) 87 U/L (46-116) Troponin I Quantitative < 0.017 ng/mL (0.000-0.055) < 0.017 ng/mL (0.000-0.055) < 0.017 ng/mL (0.000-0.055) ME-Fhx-L-Type Natriuretic Peptide 492 pg/mL (0-449) Total Protein 6.9 g/dL (6.4-8.2) 6.3 g/dL (6.4-8.2) Albumin 3.0 g/dL (3.4-5.0) 2.8 g/dL (3.4-5.0) Albumin/Globulin Ratio 0.8 (1.0-1.7) 0.8 (1.0-1.7) Laboratory Tests Test 07/15/19 21:30 07/16/19 02:10 07/16/19 05:15 White Blood Count 6.3 x10^3/uL (4.0-11.0) 5.5 x10^3/uL (4.0-11.0) Red Blood Count 4.26 x10^6/uL (3.50-5.40) 4.10 x10^6/uL (3.50-5.40) Hemoglobin 13.0 g/dL (12.0-15.5) 12.5 g/dL (12.0-15.5) Hematocrit 39.7 % (36.0-47.0) 37.5 % (36.0-47.0) Mean Corpuscular Volume 93 fL (79-100) 91 fL (79-100) Mean Corpuscular Hemoglobin 31 pg (25-35) 30 pg (25-35) Mean Corpuscular Hemoglobin Concent 33 g/dL (31-37) 33 g/dL (31-37) Red Cell Distribution Width 15.3 % (11.5-14.5) 14.7 % (11.5-14.5) Platelet Count 214 x10^3/uL (140-400) 191 x10^3/uL (140-400) Neutrophils (%) (Auto) 65 % (31-73) 63 % (31-73) Lymphocytes (%) (Auto) 20 % (24-48) 21 % (24-48) Monocytes (%) (Auto) 11 % (0-9) 12 % (0-9) Eosinophils (%) (Auto) 3 % (0-3) 4 % (0-3) Basophils (%) (Auto) 1 % (0-3) 0 % (0-3) Neutrophils # (Auto) 4.0 x10^3/uL (1.8-7.7) 3.5 x10^3/uL (1.8-7.7) Lymphocytes # (Auto) 1.3 x10^3/uL (1.0-4.8) 1.1 x10^3/uL (1.0-4.8) Monocytes # (Auto) 0.7 x10^3/uL (0.0-1.1) 0.7 x10^3/uL (0.0-1.1) Eosinophils # (Auto) 0.2 x10^3/uL (0.0-0.7) 0.2 x10^3/uL (0.0-0.7) Basophils # (Auto) 0.1 x10^3/uL (0.0-0.2) 0.0 x10^3/uL (0.0-0.2) Prothrombin Time 23.7 SEC (11.7-14.0) Prothromb Time International Ratio 2.1 (0.8-1.1) Sodium Level 141 mmol/L (136-145) 141 mmol/L (136-145) Potassium Level 4.0 mmol/L (3.5-5.1) 4.0 mmol/L (3.5-5.1) Chloride Level 105 mmol/L (98-107) 106 mmol/L (98-107) Carbon Dioxide Level 33 mmol/L (21-32) 33 mmol/L (21-32) Anion Gap 3 (6-14) 2 (6-14) Blood Urea Nitrogen 11 mg/dL (7-20) 10 mg/dL (7-20) Creatinine 0.7 mg/dL (0.6-1.0) 0.7 mg/dL (0.6-1.0) Estimated GFR (Cockcroft-Gault) 80.5 80.5 BUN/Creatinine Ratio 16 (6-20) 14 (6-20) Glucose Level 141 mg/dL (70-99) 134 mg/dL (70-99) Calcium Level 10.3 mg/dL (8.5-10.1) 10.0 mg/dL (8.5-10.1) Magnesium Level 1.9 mg/dL (1.8-2.4) Total Bilirubin 0.7 mg/dL (0.2-1.0) 0.8 mg/dL (0.2-1.0) Aspartate Amino Transf (AST/SGOT) 12 U/L (15-37) 13 U/L (15-37) Alanine Aminotransferase (ALT/SGPT) 10 U/L (14-59) 8 U/L (14-59) Alkaline Phosphatase 98 U/L (46-116) 87 U/L (46-116) Troponin I Quantitative < 0.017 ng/mL (0.000-0.055) < 0.017 ng/mL (0.000-0.055) < 0.017 ng/mL (0.000-0.055) UP-Mnz-D-Type Natriuretic Peptide 492 pg/mL (0-449) Total Protein 6.9 g/dL (6.4-8.2) 6.3 g/dL (6.4-8.2) Albumin 3.0 g/dL (3.4-5.0) 2.8 g/dL (3.4-5.0) Albumin/Globulin Ratio 0.8 (1.0-1.7) 0.8 (1.0-1.7) Images: Images History: Chest pain. Comparison with 02/03/2017. Images available but no report from that study. The cardiomediastinal silhouette appears slightly wider than at that time. Aorta is tortuous and calcified, and ectatic. The overall morphology is similar. No evidence of pneumothorax. No pleural effusion. Diffuse interstitial opacities in both lungs, grossly similar to prior study, likely due to chronic fibrosis. No focal airspace consolidation is seen. No acute bone process is identified. IMPRESSION: 1. Mild enlargement of the cardiac silhouette. 2. Aortic tortuosity and ectasia. 3. Interstitial opacities are likely chronic fibrosis. 4. No consolidating infiltrate. Assessment/Plan Assessment/Plan Chest pain intermittent acute on chronic A. fib hypertension diabetes lower sternal swelling and abnormal chest x-ray with pleural fibrosis and cardiomegaly Plan Cardiac monitoring serial enzymes /EKGs Consult cardiology Resume her home meds including the Coumadin DVT prophylaxis which will be covered by her home meds anyway PT OT We'll hold off on IV antibiotics for that left leg redness and she states this is chronic for her her leg actually looks pretty good right now she states Trend labs Full code When necessary IV antihypertensives Negative chronotropic agents per cardiology for rate control but currently her rates only 70-80 CJ VAZ III DO Jul 16, 2019 13:03
[2019-07-16] MEDS: LOSARTAN POTASSIUM 50 MG TABLET. PO SCH (13:04)
[2019-07-16] MEDS: WARFARIN 3 MG TABLET. PO SCH (16:14)
[2019-07-16] MEDS: amLODIPine BESYLATE 10 MG TABLET PO SCH (16:41)
--- NOTE | 2019-07-16 17:08 | PDOC2 ---
CONSULT Date of Consult Date of Consult DATE: 07/16/19 TIME: 17:02 Reason for Consult Reason for Consult: Chest pain Referring Physician Referring Physician: Dr. Sarmiento Identification/Chief Complaint Chief Complaint Chest pain Source Source: Chart review, Patient History of Present Illness Reason for Visit: The patient is an 79-year-old female who was admitted through the emergency room with episodes of chest pressure and shortness of breath. Patient states that the symptoms have been increasing over the past 2-3 days. Workup has included cardiac enzymes 3 which have been normal. Chest x-ray shows chronic fibrosis. EKG shows atrial fibrillation with no acute ischemic changes. INR is 2.1. The patient is feeling better this morning. Previous workup has included an MPI nuclear stress test on 09/25/18 that showed no ischemia or infarct and an ejection fraction of 55%. Past Medical History Cardiovascular: AFIB, HTN Pulmonary: COPD Endocrine: Diabetes Past Surgical History Past Surgical History: No pertinent history Family History Family History: Hypertension Social History No ALCOHOL: none Current Problem List Problem List Problems Medical Problems: (1) Chest pain Status: Acute (2) Diabetes Status: Acute (3) Hypertension Status: Acute Current Medications Current Medications Current Medications Aspirin (Children'S Aspirin) 324 mg 1X ONCE PO Last administered on 07/15/19at 21:01; Start 07/15/19 at 20:30; Stop 07/15/19 at 20:33; Status DC Nitroglycerin (Nitrostat) 0.4 mg PRN Q5MIN PRN SL CP RATING > 1/10 Last administered on 07/15/19at 21:20; Start 07/15/19 at 20:30; Stop 07/15/19 at 23:22; Status DC Morphine Sulfate (Morphine Sulfate) 2 mg 1X ONCE IV ; Start 07/15/19 at 22:30; Stop 07/15/19 at 22:31; Status DC Ondansetron HCl (Zofran) 4 mg PRN Q8HRS PRN IV NAUSEA/VOMITING 1ST CHOICE; Start 07/15/19 at 23:30; Stop 07/16/19 at 23:29 Morphine Sulfate (Morphine Sulfate) 2 mg PRN Q2HR PRN IV SEVERE PAIN 7-10; Start 07/15/19 at 23:30; Stop 07/16/19 at 23:29 Acetaminophen (Tylenol) 650 mg PRN Q4HRS PRN PO FEVER; Start 07/15/19 at 23:30; Stop 07/16/19 at 23:29 Nitroglycerin (Nitrostat) 0.4 mg PRN Q5MIN PRN SL CHEST PAIN; Start 07/15/19 at 23:30; Stop 07/16/19 at 23:29 Furosemide (Lasix) 40 mg DAILY PO Last administered on 07/16/19at 13:03; Start 07/16/19 at 12:00 Losartan Potassium (Cozaar) 25 mg DAILY PO Last administered on 07/16/19at 13:04; Start 07/16/19 at 12:00 Potassium Chloride (Klor-Con) 10 meq DAILY PO Last administered on 07/16/19at 13:03; Start 07/16/19 at 12:00 Simvastatin (Zocor) 10 mg QHS PO ; Start 07/16/19 at 21:00 Non-Formulary Medication (Alendronate Sodium ) 1 tab WEEKLY PO ; Start 07/23/19 at 09:00; Status UNV Calcium/Vitamin D (Oscal D 500mg/ 200uts) 1 tab DAILY PO Last administered on 07/16/19at 13:03; Start 07/16/19 at 12:00 Diphenhydramine HCl (Benadryl) 25 mg PRN Q6HRS PRN PO ITCHING; Start 07/16/19 at 11:45 Warfarin Sodium (Coumadin) 6 mg DAILY16 PO Last administered on 07/16/19at 16:14; Start 07/16/19 at 16:00 Warfarin Sodium (Coumadin Per Pharmacy) 1 each PRN DAILY PRN [facility] SEE COMMENTS; Start 07/16/19 at 12:00 Amlodipine Besylate (Norvasc) 10 mg DAILY PO Last administered on 07/16/19at 16:41; Start 07/16/19 at 16:00 Active Scripts Active Reported Alendronate Sodium 70 Mg Tablet 1 Tab PO WEEKLY Diphenhydramine Hcl 25 Mg Tablet 25 Mg PO PRN Q6-8HRS PRN Simvastatin 10 Mg Tablet 1 Tab PO QHS Warfarin Sodium 6 Mg Tablet 6 Mg PO DAILY Calcium 600 + Vit D3 Tablet (Calcium Carbonate/Vitamin D3) 1 Each Tablet 1 Tab PO DAILY 30 Days Losartan Potassium 50 Mg Tablet 25 Mg PO DAILY Furosemide 40 Mg Tablet 1 Tab PO DAILY Klor-Con M10 (Potassium Chloride) 10 Meq Tab.er.prt 10 Meq PO DAILY Allergies Allergies: Coded Allergies: phenazopyridine (Verified Allergy, Intermediate, 12/07/15) ROS Respiratory: YES: SOB with excertion Cardiovascular: yes Chest Pain Physical Exam General: mild distress HEENT: Atraumatic Lungs: Other (slightly decreased breath sounds) Heart: Other (irregularly irregular) Abdomen: Normal bowel sounds Vitals VITALS Vital Signs Date Time Temp Pulse Resp B/P (MAP) Pulse Ox O2 Delivery O2 Flow Rate FiO2 07/16/19 16:41 67 176/77 07/16/19 15:00 98.2 18 92 Room Air 98.2 Labs Labs Laboratory Tests Test 07/15/19 21:30 07/16/19 02:10 07/16/19 05:15 White Blood Count 6.3 x10^3/uL (4.0-11.0) 5.5 x10^3/uL (4.0-11.0) Red Blood Count 4.26 x10^6/uL (3.50-5.40) 4.10 x10^6/uL (3.50-5.40) Hemoglobin 13.0 g/dL (12.0-15.5) 12.5 g/dL (12.0-15.5) Hematocrit 39.7 % (36.0-47.0) 37.5 % (36.0-47.0) Mean Corpuscular Volume 93 fL (79-100) 91 fL (79-100) Mean Corpuscular Hemoglobin 31 pg (25-35) 30 pg (25-35) Mean Corpuscular Hemoglobin Concent 33 g/dL (31-37) 33 g/dL (31-37) Red Cell Distribution Width 15.3 % (11.5-14.5) 14.7 % (11.5-14.5) Platelet Count 214 x10^3/uL (140-400) 191 x10^3/uL (140-400) Neutrophils (%) (Auto) 65 % (31-73) 63 % (31-73) Lymphocytes (%) (Auto) 20 % (24-48) 21 % (24-48) Monocytes (%) (Auto) 11 % (0-9) 12 % (0-9) Eosinophils (%) (Auto) 3 % (0-3) 4 % (0-3) Basophils (%) (Auto) 1 % (0-3) 0 % (0-3) Neutrophils # (Auto) 4.0 x10^3/uL (1.8-7.7) 3.5 x10^3/uL (1.8-7.7) Lymphocytes # (Auto) 1.3 x10^3/uL (1.0-4.8) 1.1 x10^3/uL (1.0-4.8) Monocytes # (Auto) 0.7 x10^3/uL (0.0-1.1) 0.7 x10^3/uL (0.0-1.1) Eosinophils # (Auto) 0.2 x10^3/uL (0.0-0.7) 0.2 x10^3/uL (0.0-0.7) Basophils # (Auto) 0.1 x10^3/uL (0.0-0.2) 0.0 x10^3/uL (0.0-0.2) Prothrombin Time 23.7 SEC (11.7-14.0) Prothromb Time International Ratio 2.1 (0.8-1.1) Sodium Level 141 mmol/L (136-145) 141 mmol/L (136-145) Potassium Level 4.0 mmol/L (3.5-5.1) 4.0 mmol/L (3.5-5.1) Chloride Level 105 mmol/L (98-107) 106 mmol/L (98-107) Carbon Dioxide Level 33 mmol/L (21-32) 33 mmol/L (21-32) Anion Gap 3 (6-14) 2 (6-14) Blood Urea Nitrogen 11 mg/dL (7-20) 10 mg/dL (7-20) Creatinine 0.7 mg/dL (0.6-1.0) 0.7 mg/dL (0.6-1.0) Estimated GFR (Cockcroft-Gault) 80.5 80.5 BUN/Creatinine Ratio 16 (6-20) 14 (6-20) Glucose Level 141 mg/dL (70-99) 134 mg/dL (70-99) Calcium Level 10.3 mg/dL (8.5-10.1) 10.0 mg/dL (8.5-10.1) Magnesium Level 1.9 mg/dL (1.8-2.4) Total Bilirubin 0.7 mg/dL (0.2-1.0) 0.8 mg/dL (0.2-1.0) Aspartate Amino Transf (AST/SGOT) 12 U/L (15-37) 13 U/L (15-37) Alanine Aminotransferase (ALT/SGPT) 10 U/L (14-59) 8 U/L (14-59) Alkaline Phosphatase 98 U/L (46-116) 87 U/L (46-116) Troponin I Quantitative < 0.017 ng/mL (0.000-0.055) < 0.017 ng/mL (0.000-0.055) < 0.017 ng/mL (0.000-0.055) VC-Hym-S-Type Natriuretic Peptide 492 pg/mL (0-449) Total Protein 6.9 g/dL (6.4-8.2) 6.3 g/dL (6.4-8.2) Albumin 3.0 g/dL (3.4-5.0) 2.8 g/dL (3.4-5.0) Albumin/Globulin Ratio 0.8 (1.0-1.7) 0.8 (1.0-1.7) Laboratory Tests Test 07/15/19 21:30 07/16/19 02:10 07/16/19 05:15 White Blood Count 6.3 x10^3/uL (4.0-11.0) 5.5 x10^3/uL (4.0-11.0) Red Blood Count 4.26 x10^6/uL (3.50-5.40) 4.10 x10^6/uL (3.50-5.40) Hemoglobin 13.0 g/dL (12.0-15.5) 12.5 g/dL (12.0-15.5) Hematocrit 39.7 % (36.0-47.0) 37.5 % (36.0-47.0) Mean Corpuscular Volume 93 fL (79-100) 91 fL (79-100) Mean Corpuscular Hemoglobin 31 pg (25-35) 30 pg (25-35) Mean Corpuscular Hemoglobin Concent 33 g/dL (31-37) 33 g/dL (31-37) Red Cell Distribution Width 15.3 % (11.5-14.5) 14.7 % (11.5-14.5) Platelet Count 214 x10^3/uL (140-400) 191 x10^3/uL (140-400) Neutrophils (%) (Auto) 65 % (31-73) 63 % (31-73) Lymphocytes (%) (Auto) 20 % (24-48) 21 % (24-48) Monocytes (%) (Auto) 11 % (0-9) 12 % (0-9) Eosinophils (%) (Auto) 3 % (0-3) 4 % (0-3) Basophils (%) (Auto) 1 % (0-3) 0 % (0-3) Neutrophils # (Auto) 4.0 x10^3/uL (1.8-7.7) 3.5 x10^3/uL (1.8-7.7) Lymphocytes # (Auto) 1.3 x10^3/uL (1.0-4.8) 1.1 x10^3/uL (1.0-4.8) Monocytes # (Auto) 0.7 x10^3/uL (0.0-1.1) 0.7 x10^3/uL (0.0-1.1) Eosinophils # (Auto) 0.2 x10^3/uL (0.0-0.7) 0.2 x10^3/uL (0.0-0.7) Basophils # (Auto) 0.1 x10^3/uL (0.0-0.2) 0.0 x10^3/uL (0.0-0.2) Prothrombin Time 23.7 SEC (11.7-14.0) Prothromb Time International Ratio 2.1 (0.8-1.1) Sodium Level 141 mmol/L (136-145) 141 mmol/L (136-145) Potassium Level 4.0 mmol/L (3.5-5.1) 4.0 mmol/L (3.5-5.1) Chloride Level 105 mmol/L (98-107) 106 mmol/L (98-107) Carbon Dioxide Level 33 mmol/L (21-32) 33 mmol/L (21-32) Anion Gap 3 (6-14) 2 (6-14) Blood Urea Nitrogen 11 mg/dL (7-20) 10 mg/dL (7-20) Creatinine 0.7 mg/dL (0.6-1.0) 0.7 mg/dL (0.6-1.0) Estimated GFR (Cockcroft-Gault) 80.5 80.5 BUN/Creatinine Ratio 16 (6-20) 14 (6-20) Glucose Level 141 mg/dL (70-99) 134 mg/dL (70-99) Calcium Level 10.3 mg/dL (8.5-10.1) 10.0 mg/dL (8.5-10.1) Magnesium Level 1.9 mg/dL (1.8-2.4) Total Bilirubin 0.7 mg/dL (0.2-1.0) 0.8 mg/dL (0.2-1.0) Aspartate Amino Transf (AST/SGOT) 12 U/L (15-37) 13 U/L (15-37) Alanine Aminotransferase (ALT/SGPT) 10 U/L (14-59) 8 U/L (14-59) Alkaline Phosphatase 98 U/L (46-116) 87 U/L (46-116) Troponin I Quantitative < 0.017 ng/mL (0.000-0.055) < 0.017 ng/mL (0.000-0.055) < 0.017 ng/mL (0.000-0.055) JU-Hly-U-Type Natriuretic Peptide 492 pg/mL (0-449) Total Protein 6.9 g/dL (6.4-8.2) 6.3 g/dL (6.4-8.2) Albumin 3.0 g/dL (3.4-5.0) 2.8 g/dL (3.4-5.0) Albumin/Globulin Ratio 0.8 (1.0-1.7) 0.8 (1.0-1.7) Images Images As above. Assessment/Plan Assessment/Plan 1. Chest pain. Pain has resolved. No acute ischemic EKG changes. Troponin normal 3. MPI testing on 09/25/18 showed no ischemia or infarct and an ejection fraction of 55%. Will continue present medications. 2. Shortness of breath. Patient with a history of COPD. We'll continue pulmonary treatments. We'll check an echocardiogram to recheck LV function and her valves. 3. Rate control paroxysmal atrial fibrillation. Continue present medications and anticoagulation. INR is 2.1. 4. Diabetes mellitus. As per the primary service. 5. Hypertension. We'll adjust medications as needed. 6. History of reported DVT. Continue anticoagulation. Thank you for allowing us to participate in the care of your patient. AWILDA VALENCIA MD Jul 16, 2019 17:08
[2019-07-16] MEDS: SIMVASTATIN 10 MG TABLET PO SCH (20:07)
[2019-07-17 03:50] VITALS: BP 138/52
--- NOTE | 2019-07-17 06:08 | EKG ---
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
[2019-07-17 07:00] VITALS: BP 140/59
[2019-07-17 09:23] LABS: PROTHROMBIN TIME PATIENT 19.3 SEC (11.7-14.0)
[2019-07-17] MEDS: CALCIUM CARB/VIT D3 500/200 TABLET. PO SCH (10:05)
[2019-07-17] MEDS: POTASSIUM CHLORIDE 10 MEQ TABLET.ER. PO SCH (10:05)
[2019-07-17] MEDS: amLODIPine BESYLATE 10 MG TABLET PO SCH (10:06)
[2019-07-17] MEDS: LOSARTAN POTASSIUM 50 MG TABLET. PO SCH (10:06)
[2019-07-17] MEDS: FUROSEMIDE 40 MG TABLET. PO SCH (10:06)
[2019-07-17 11:00] VITALS: BP 129/63
--- NOTE | 2019-07-17 11:59 | PDOC ---
[facility] [facility] PROGRESS NOTE Chief Complaint Chief Complaint CHF A-Fib COPD Diabetes-Type II DVT Hypertension Pericardial window History of Present Illness History of Present Illness 07/17/19 Pt seen and examined DW pt about their care Pt reported having some leg cramping overnight DW RN Reviewed pt's chart Vitals/I&O Vitals/I&O: Vital Signs Date Time Temp Pulse Resp B/P (MAP) Pulse Ox O2 Delivery O2 Flow Rate FiO2 07/17/19 11:00 98.7 63 16 129/63 (85) 92 Room Air 98.7 I & O 07/16/19 07/16/19 07/17/19 15:00 23:00 07:00 Intake Total 700 ml 650 ml 150 ml Balance 700 ml 650 ml 150 ml Physical Exam General: Alert, Oriented X3, Cooperative, No acute distress Heart: No murmurs, Other (irregularly irregular) Lungs: Clear Abdomen: Normal bowel sounds, Soft Extremities: No clubbing, No cyanosis Skin: No rashes, No breakdown Labs Labs: Laboratory Tests Test 07/17/19 08:04 Prothrombin Time 19.3 SEC (11.7-14.0) Prothromb Time International Ratio 1.7 (0.8-1.1) Review of Systems Review of Systems: No c/o headaches No c/o SOB Assessment and Plan Assessmemt and Plan Problems Medical Problems: (1) Chest pain Status: Acute (2) Diabetes Status: Acute (3) Hypertension Status: Acute Assessment CHF A-Fib COPD Diabetes-Type II DVT Hypertension Pericardial window Plan Await cardiology input Trend cardiac enzymes Monitor BP Home meds Labs DVT Prophylaxis PT/OT Full code Appreciate subspecialist input Comment Review of Relevant I have reviewed the following items joe (where applicable) has been applied. Medications: Current Medications Medications (Trade) Dose Ordered Sig/Kareem Route PRN Reason Start Time Stop Time Status Last Admin Dose Admin Furosemide (Lasix) 40 mg DAILY PO 07/16/19 12:00 07/17/19 10:06 Losartan Potassium (Cozaar) 25 mg DAILY PO 07/16/19 12:00 07/17/19 10:06 Potassium Chloride (Klor-Con) 10 meq DAILY PO 07/16/19 12:00 07/17/19 10:05 Simvastatin (Zocor) 10 mg QHS PO 07/16/19 21:00 07/16/19 20:07 Calcium/Vitamin D (Oscal D 500mg/ 200uts) 1 tab DAILY PO 07/16/19 12:00 07/17/19 10:05 Warfarin Sodium (Coumadin) 6 mg DAILY16 PO 07/16/19 16:00 07/16/19 16:14 Warfarin Sodium (Coumadin Per Pharmacy) 1 each PRN DAILY PRN MC SEE COMMENTS 07/16/19 12:00 07/16/19 16:58 Amlodipine Besylate (Norvasc) 10 mg DAILY PO 07/16/19 16:00 07/17/19 10:06 CJ VAZ III DO Jul 17, 2019 11:59
--- NOTE | 2019-07-17 12:10 | PDOC ---
CARDIO Progress Notes Date and Time Date of Service 07/17/19 Time of Evaluation 1200 Subjective Subjective: No Chest Pain, No shortness of breath, No Palpitations Vitals Vitals Vital Signs Date Time Temp Pulse Resp B/P (MAP) Pulse Ox O2 Delivery O2 Flow Rate FiO2 07/17/19 11:00 98.7 63 16 129/63 (85) 92 Room Air 98.7 Weight Weight [ ] Input and Output Intake and Output Intake and Output 07/17/19 07:00 Intake Total 1500 ml Balance 1500 ml Intake Oral 1500 ml # Voids 3 Laboratory Labs Laboratory Tests Test 07/17/19 08:04 Prothrombin Time 19.3 SEC (11.7-14.0) Prothromb Time International Ratio 1.7 (0.8-1.1) Physical Exam HEENT: Neck Supple W Full Motion Chest: Symmetric LUNGS: Clear to Auscultation, Other (diminished bases) Heart: S1S2, RRR Abdomen: Soft N/T, Other (obese ) Extremities: Other (1+ bilateral LE edema ) Neurology: alert, oriented, follow commands Assessment Assessment 1. Chest pain, atypical. AMI ruled out. EKG without significant acute changes.MPI 09/25/18 without ischemia or infarct. Echo with preserved LV systolic function. Most probably secondary to #2 2. Hypertensive urgency; now controlled 3. PAFIB; s/o ablation. chronic OAC with warfarin. INR is 1.7 4. Diabetes, II; as per PCP 5. 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 H/o pericardial effusion; uncertain etiology, s/p pericardiocentesis followed by pericardial window placement in the past at [facility]. Echo did not show an pericardial effusion Recommendations Continue current antiHTN therapy ASA Lipid panel-statin if indications May discharge and f/u in our office as scheduled with ADRIENNE Gage APRN Jul 17, 2019 12:10
--- NOTE | 2019-07-17 13:34 | CARD ---
MR#: [id number] Date of Study: 07/17/2019 Ordering Physician: AWILDA VALENCIA, Referring Physician: AWILDA VALENCIA, Tech: Abbie Nagy [place] APPROVED REPORT EXAM: Two-dimensional and M-mode echocardiogram with Doppler and color Doppler. Other Information Quality : Good INDICATION Dyspnea 2D DIMENSIONS RVDd3.0 (2.9-3.5cm)Left Atrium(2D)5.2 (1.6-4.0cm) IVSd1.0 (0.7-1.1cm)Aortic Root(2D)3.2 (2.0-3.7cm) LVDd6.4 (3.9-5.9cm)LVOT Diameter2.3 (1.8-2.4cm) PWd1.0 (0.7-1.1cm)LVDs5.1 (2.5-4.0cm) FS (%) 20.2 %SV83.2 ml LVEF(%)40.5 (>50%) Aortic Valve AoV Peak Juan Manuel.110.0cm/sAoV VTI20.2cm AO Peak GR.4.8mmHgLVOT Peak Juan Manuel.108.7cm/s AO Mean GR.3mmHgAVA (VMAX)4.03cm2 LUIZ (VTI)4.50cm2 Mitral Valve MV E Vpirwcjv23.8cm/sMV DECEL [id number] MV A Ernerpej59.7cm/sE/A Ratio0.5 Pulmonary Vein S1 Csiupxbd75.4cm/sD2 Owpnkrdi82.6cm/s LEFT VENTRICLE The Left Ventricle is mildly dilated. There is normal left ventricular wall thickness. The left ventr icular systolic function is normal and the ejection fraction is within normal range. EF 50-55% Septal motion consistent with conduction abnormality. Otherwise, normal wall motion. Transmitral Doppler fl ow pattern is Grade I-abnormal relaxation pattern. RIGHT VENTRICLE The right ventricle is normal size. The right ventricular systolic function is normal. ATRIA The left atrium is moderately dilated. The right atrium size is normal. The interatrial septum is int act with no evidence for an atrial septal defect or patent foramen ovale as noted on 2-D or Doppler i maging. AORTIC VALVE The aortic valve is calcified but opens well. Doppler and Color Flow revealed trace aortic regurgitat ion. There is no significant aortic valvular stenosis. MITRAL VALVE The mitral valve is calcified but opens well. There is no evidence of mitral valve prolapse. There is no mitral valve stenosis. Doppler and Color-flow revealed trace mitral regurgitation. TRICUSPID VALVE The tricuspid valve is normal in structure and function. Doppler and Color Flow revealed trace tricus pid regurgitation. There is no tricuspid valve stenosis. PULMONIC VALVE The pulmonic valve is not well visualized. Doppler and Color Flow revealed mild pulmonic valvular reg urgitation. There is no pulmonic valvular stenosis. GREAT VESSELS The aortic root is normal in size. The ascending aorta is mildly dilated at 3.4 cm. The IVC is normal in size and collapses >50% with inspiration. PERICARDIAL EFFUSION There is no evidence of significant pericardial effusion. Critical Notification Critical Value: No <Conclusion> The left ventricular systolic function is normal and the ejection fraction is within normal range. EF 50-55% Septal motion consistent with conduction abnormality. Otherwise, normal wall motion. The ascending aorta is mildly dilated at 3.4 cm. Signed by : Venancio Duenas, Electronically Approved : 07/17/2019 13:33:22
[2019-07-17 15:00] VITALS: BP 121/58
[2019-07-17] MEDS: WARFARIN 3 MG TABLET. PO SCH (17:41)
[2019-07-17] MEDS: ASPIRIN ENTERIC COATED 81 MG TABLET.DR. PO SCH (17:47)
[2019-07-17 19:25] VITALS: BP 120/56
[2019-07-17] MEDS: SIMVASTATIN 10 MG TABLET PO SCH (20:01)
[2019-07-17 23:54] VITALS: BP 130/60
[2019-07-18 03:54] VITALS: BP 116/40
[2019-07-18 05:16] LABS: BASO % 1 % (0-3); EOS # 0.2 x10^3/uL (0.0-0.7); EOS % 4 % (0-3); HEMATOCRIT 38.1 % (36.0-47.0); HEMOGLOBIN 12.7 g/dL (12.0-15.5); LYMPH # 1.2 x10^3/uL (1.0-4.8); LYMPH % 21 % (24-48); MEAN CORPUSCULAR HEMOGLOBIN 31 pg (25-35); MEAN CORPUSCULAR HGB CONC 33 g/dL (31-37); MEAN CORPUSCULAR VOLUME 92 fL (79-100); MONO # 0.7 x10^3/uL (0.0-1.1); MONO % 13 % (0-9); NEUT # 3.3 x10^3/uL (1.8-7.7); NEUT % 61 % (31-73); PLATELET COUNT 199 x10^3/uL (140-400); RED BLOOD COUNT 4.14 x10^6/uL (3.50-5.40); RED CELL DISTRIBUTION WIDTH 14.9 % (11.5-14.5); WHITE BLOOD COUNT 5.4 x10^3/uL (4.0-11.0)
[2019-07-18 07:55] VITALS: BP 140/54
[2019-07-18] MEDS: ASPIRIN ENTERIC COATED 81 MG TABLET.DR. PO SCH (09:18)
[2019-07-18] MEDS: POTASSIUM CHLORIDE 10 MEQ TABLET.ER. PO SCH (09:18)
[2019-07-18] MEDS: CALCIUM CARB/VIT D3 500/200 TABLET. PO SCH (09:19)
[2019-07-18] MEDS: LOSARTAN POTASSIUM 50 MG TABLET. PO SCH (09:19)
[2019-07-18] MEDS: amLODIPine BESYLATE 10 MG TABLET PO SCH (09:19)
[2019-07-18] MEDS: FUROSEMIDE 40 MG TABLET. PO SCH (09:19)
--- NOTE | 2019-07-18 11:17 | SNU/HH DC ---
DISCHARGE WITH HOME HEALTH DISCHARGE INFORMATION: Final Diagnosis: Problems Medical Problems: (1) Chest pain Status: Acute (2) Diabetes Status: Acute (3) Hypertension Status: Acute Condition on Discharge: Stable CODE STATUS: Code Status: Full HOME HEALTH: Face to Face: I certify this patient is under my care and that I, or a nurse practitioner or physician's academic support assistant working with me, had a face to face encounter that meets the physician face to face encounter requirements with this patient on []. Medical Complications: Other (A. fib diabetes hypertension angina) [facility] For: Assess & Educate Safety RN For Eval/Treatment: Yes Physical Therapy For: Evalulation/Treatment Speech Language Pathology For: Evaluation/Treatment Home Health Aide For: Self-care DIETICIAN For: Community Resources Pt Meets Homebound Status: Poor coordination w/ amb. POST DISCHARGE ORDERS: DIET AFTER DISCHARGE: Cardiac CERTIFICATION STATEMENT: Certification Statement: Certification Statement: Based on the above finding, I certify that this patient is confined to the home and needs intermittent correction care, physical therapy and/or speech therapy, or continues to need occupational therapy.~ This patient is under my care, and I have initiated the establishment of the plan of care.~ This patient will be followed by myself or a community physician who will periodically review the plan of care. Home Meds Reported Medications Alendronate Sodium (ALENDRONATE SODIUM) 70 Mg Tablet, 1 TAB PO WEEKLY for bone replacement/supplement, #4 TAB 3 Refills 07/16/19 Diphenhydramine Hcl (DIPHENHYDRAMINE HCL) 25 Mg Tablet, 25 MG PO PRN Q6-8HRS PRN for HIVES, TAB 07/16/19 Simvastatin (SIMVASTATIN) 10 Mg Tablet, 1 TAB PO QHS for high cholesterol, #30 TAB 5 Refills 07/16/19 Warfarin Sodium (WARFARIN SODIUM) 6 Mg Tablet, 6 MG PO DAILY for afib/dvt, #30 TAB 20 Calcium Carbonate/Vitamin D3 (CALCIUM 600 + VIT D3 TABLET) 1 Each Tablet, 1 TAB PO DAILY for supplement for 30 Days, #30 TAB 0 Refills 07/16/19 Losartan Potassium (LOSARTAN POTASSIUM) 50 Mg Tablet, 25 MG PO DAILY for HYPERTENSION, TAB 07/16/19 Furosemide (FUROSEMIDE) 40 Mg Tablet, 1 TAB PO DAILY for diuretic, #30 TAB 5 Refills 07/16/19 Potassium Chloride (KLOR-CON M10) 10 Meq Tab.er.prt, 10 MEQ PO DAILY for supplement, TAB.SR 07/16/19 CJ VAZ III DO Jul 18, 2019 11:17
[2019-07-18 11:20] VITALS: BP 124/49
--- NOTE | 2019-07-18 11:43 | PDOC ---
[employer] [facility] PROGRESS NOTE Chief Complaint Chief Complaint CHF A-Fib COPD Diabetes-Type II DVT Hypertension Pericardial window History of Present Illness History of Present Illness 07/18/2019 Patient seen and examined Chart reviewed Discussed with RN Patient seems to be at her baseline so I put a discharge in 07/17/19 Pt seen and examined DW pt about their care Pt reported having some leg cramping overnight DW RN Reviewed pt's chart Vitals/I&O Vitals/I&O: Vital Signs Date Time Temp Pulse Resp B/P (MAP) Pulse Ox O2 Delivery O2 Flow Rate FiO2 07/18/19 11:20 98.7 60 18 124/49 (74) 98 Room Air 98.7 I & O 07/17/19 07/17/19 07/18/19 15:00 23:00 07:00 Intake Total 550 ml 300 ml 200 ml Balance 550 ml 300 ml 200 ml Physical Exam General: Alert, Oriented X3, Cooperative, No acute distress Heart: No murmurs, Other (irregularly irregular) Lungs: Clear Abdomen: Normal bowel sounds, Soft Extremities: No clubbing, No cyanosis Skin: No rashes, No breakdown Labs Labs: Laboratory Tests Test 07/18/19 04:30 White Blood Count 5.4 x10^3/uL (4.0-11.0) Red Blood Count 4.14 x10^6/uL (3.50-5.40) Hemoglobin 12.7 g/dL (12.0-15.5) Hematocrit 38.1 % (36.0-47.0) Mean Corpuscular Volume 92 fL (79-100) Mean Corpuscular Hemoglobin 31 pg (25-35) Mean Corpuscular Hemoglobin Concent 33 g/dL (31-37) Red Cell Distribution Width 14.9 % (11.5-14.5) Platelet Count 199 x10^3/uL (140-400) Neutrophils (%) (Auto) 61 % (31-73) Lymphocytes (%) (Auto) 21 % (24-48) Monocytes (%) (Auto) 13 % (0-9) Eosinophils (%) (Auto) 4 % (0-3) Basophils (%) (Auto) 1 % (0-3) Neutrophils # (Auto) 3.3 x10^3/uL (1.8-7.7) Lymphocytes # (Auto) 1.2 x10^3/uL (1.0-4.8) Monocytes # (Auto) 0.7 x10^3/uL (0.0-1.1) Eosinophils # (Auto) 0.2 x10^3/uL (0.0-0.7) Basophils # (Auto) 0.0 x10^3/uL (0.0-0.2) Prothrombin Time 18.0 SEC (11.7-14.0) Prothromb Time International Ratio 1.5 (0.8-1.1) Assessment and Plan Assessmemt and Plan Problems Medical Problems: (1) Chest pain Status: Acute (2) Diabetes Status: Acute (3) Hypertension Status: Acute Assessment CHF A-Fib COPD Diabetes-Type II DVT Hypertension Pericardial window Plan Discharge home if okay with consultants Monitor BP Home meds Labs DVT Prophylaxis PT/OT Full code Appreciate subspecialist input Comment Review of Relevant I have reviewed the following items joe (where applicable) has been applied. Medications: Current Medications Medications (Trade) Dose Ordered Sig/Kareem Route PRN Reason Start Time Stop Time Status Last Admin Dose Admin Aspirin (Ecotrin) 81 mg DAILYWBKFT PO 07/17/19 16:30 07/18/19 09:18 CJ VAZ III DO Jul 18, 2019 11:43
--- NOTE | 2019-07-18 13:27 | NUR ---
SW spoke with pt and she declined HH. Pt is awaiting for her daughter to take her home.
[2019-07-18 14:39] VITALS: BP 128/52
--- NOTE | 2019-07-18 16:02 | NUR ---
Discharge Note: RIKY PRATT[facility] Discharge instructions and discharge home medications reviewed with patient and a copy given. All questions have been answered and understanding verbalized. The following instructions and handouts were given: Take home meds as instructed. Amlodipine 10 mg tablet , 1 tablet daily. Prescription called to [facility] pharmacy at 1600. Follow up with PCP in a week, cardiology as scheduled. Discontinued lines and drains:peripheral IV intact, patient tolerated removal, no complications noted. Patient discharged to Home with self care via wheelchair accompanied by family member at 1530.
[2019-07-18 18:12] LABS: CALCIUM 10.2 mg/dL (8.5-10.1); CREATININE 0.7 mg/dL (0.6-1.0); GFR 80.5
--- NOTE | 2019-07-19 11:31 | DS ---
DATE OF DISCHARGE: 07/18/2019 ADMISSION DIAGNOSES: Chest pain, atrial fibrillation, hypertension. DISCHARGE DIAGNOSES: Resolving atypical chest pain, resolving hypertension, resolving atrial fibrillation, diabetes, overweight. HOSPITAL COURSE: The patient is a pleasant 79-year-old female who presented with chest pain. She was also having some AFib and accelerated hypertension and her glucose was high. We admitted her. We consulted Cardiology, did cardiac monitoring and a brief cardiac workup. We got her blood pressure under control, her rate was under control. Yesterday, I saw and examined, she was in the chair, requesting to go home. Heart tones were normal. Lungs were clear. We discharged to home. DISPOSITION: Home. ACTIVITY: As tolerated. DIET: Cardiac. MEDICATIONS: Please see the MRAD. TOTAL TIME: 34 minutes. CJ VAZ DO DR: JUDD/katheryn JOB#: [id number] / [id number]
[2019-07-23] MEDS ORDERED: NON FORMULARY ITEM (Alendronate Sodium 1 TAB) PO SCH (09:00)
== END 2019-07-18 15:10 | disposition home or self-care (01) | DRG 309 ==
LOC: ER 20:23 → 6 SOUTH 22:35
PROVIDERS: ADMIT Internal Medicine; ATTEND Internal Medicine
DX: I48.0 Paroxysmal atrial fibrillation (principal); Z68.41 Body mass index [BMI] 40.0-44.9, adult; I16.0 Hypertensive urgency; R07.89 Other chest pain; E11.9 Type 2 diabetes mellitus without complications; E66.3 Overweight; I11.0 Hypertensive heart disease with heart failure; I50.9 Heart failure, unspecified; J44.9 Chronic obstructive pulmonary disease, unspecified; Z79.01 Long term (current) use of anticoagulants; Z82.49 Family history of ischemic heart disease and other diseases of the circulatory system; Z86.711 Personal history of pulmonary embolism; Z86.718 Personal history of other venous thrombosis and embolism; Z88.8 Allergy status to other drugs, medicaments and biological substances
CPT/HCPCS: 36415; 71045; 80048; 80053; 80061; 83735; 83880; 84484; 85025; 85610; 93005; 93306; 99285-25; G0378

== ENCOUNTER → 2019-09-17 | Outpatient (CLI) | payer MEDICARE ==
[~2019-09-17] MED LIST changes: +ALEN70TA6 PO; +CALC-496 PO; +DIPH25TA24 PO; +FURO40TA4 PO; +LOSA-73 PO; +POTA10TA12 PO; -REGADENOSON 0.4 MG/5 ML DISP.SYRIN. IV ONE; +SIMV10TA15 PO; +WARF6TAB47 PO
--- NOTE | 2019-09-17 14:57 | RAD ---
EXAM: CHEST PA LATERAL INDICATION: COPD. TECHNIQUE: PA and lateral views of the chest COMPARISON: 07/15/2019 FINDINGS: Moderate cardiomegaly. Stable. Aortic calcification and tortuosity redemonstrated. There is no hilar or mediastinal mass. Hyperinflated lungs. No focal infiltrates. There is no pleural effusion or pneumothorax. There are no significant osseous abnormalities. IMPRESSION: Cardiomegaly and COPD with no acute superimposed process shown by x-ray. Electronically signed by: Cesar Farris MD (09/17/2019 2:54 PM) [id number]
== END | disposition home or self-care (01) ==
LOC: RAD 10:22
PROVIDERS: ATTEND Family Medicine
DX: I51.7 Cardiomegaly (principal); I70.0 Atherosclerosis of aorta; Q25.46 Tortuous aortic arch; J44.9 Chronic obstructive pulmonary disease, unspecified
CPT/HCPCS: 71046

== ENCOUNTER 2019-12-02 05:36 | Inpatient (IN) | payer MEDICARE ==
[~2019-12-02] VITALS: Ht 162.6 cm; Wt 95.6 kg
[2019-12-02] VITALS (8 sets, daily range): BP systolic 104–142; BP diastolic 48–72
[~2019-12-02 05:36] MED LIST changes: +AMOX1TAB10 PO; +SITA50TA PO
[2019-12-02] MEDS ORDERED: ONDANSETRON PF 4 MG/2 ML VIAL. IVP ONE ×2 (06:00→07:45)
[2019-12-02] MEDS ORDERED: FAMOTIDINE 20 MG/2 ML VIAL IVP ONE (06:00)
[2019-12-02] MEDS ORDERED: IV NORMAL SALINE 1000ML BAG 1,000 ML IV ONE (06:00)
[2019-12-02 06:10] LABS: BASO % 0 % (0-3); EOS # 0.1 x10^3/uL (0.0-0.7); EOS % 1 % (0-3); HEMATOCRIT 32.7 % (36.0-47.0); HEMOGLOBIN 10.7 g/dL (12.0-15.5); LYMPH # 0.8 x10^3/uL (1.0-4.8); LYMPH % 6 % (24-48); MEAN CORPUSCULAR HEMOGLOBIN 28 pg (25-35); MEAN CORPUSCULAR HGB CONC 33 g/dL (31-37); MEAN CORPUSCULAR VOLUME 86 fL (79-100); MONO % 8 % (0-9); NEUT # 10.8 x10^3/uL (1.8-7.7); NEUT % 85 % (31-73); PLATELET COUNT 299 x10^3/uL (140-400); RED BLOOD COUNT 3.79 x10^6/uL (3.50-5.40); RED CELL DISTRIBUTION WIDTH 20.1 % (11.5-14.5); WHITE BLOOD COUNT 12.6 x10^3/uL (4.0-11.0)
[2019-12-02 06:19] LABS: BILIRUBIN,URINE NEGATIVE (NEG); CLARITY,URINE CLEAR; COLOR,URINE YELLOW; NITRITE,URINE NEGATIVE (NEG); PROTEIN,URINE NEGATIVE (NEG-TRACE)
[2019-12-02 06:21] LABS: CALCIUM 10.2 mg/dL (8.5-10.1); CREATININE 0.9 mg/dL (0.6-1.0); GFR 60.2; POTASSIUM 4.1 mmol/L (3.5-5.1)
[2019-12-02 06:27] LABS: ALBUMIN 2.1 g/dL (3.4-5.0); ALBUMIN/GLOBULIN RATIO 0.5 (1.0-1.7); MAGNESIUM 1.8 mg/dL (1.8-2.4); TOTAL BILIRUBIN 0.6 mg/dL (0.2-1.0); TOTAL PROTEIN 6.1 g/dL (6.4-8.2)
--- NOTE | 2019-12-02 06:28 | PHYS DOC ---
Past Medical History Past Medical History: A-Fib, COPD, Diabetes-Type II, DVT, High Cholesterol, Hypertension, Stroke Past Surgical History: Other Additional Past Surgical Histo: ovarian cyst surgery, cyst removal from neck Smoking Status: Former Smoker Alcohol Use: None Drug Use: None General Adult EDM: Chief Complaint: NAUSEA/VOMITING/DIARRHA HPI: HPI: Patient is a 79 year old F past medical history of diabetes, obesity, hypertension, HLD, HRpEF, hyperlipidemia, COPD on 1.5L O2, atrial fibrillation and h/o DVT on Coumadin, with recent admission November 21, presents to the ED from home with complaints of " it is my COPD." States she's have sharp nonradiating LLQ abdominal pain that started around 4am, last meal 5pm last night. Reports associated nausea, nonbloody nonbilious vomiting. When asked if she's had a fever, touches her forehead and states "I don't know." Pt very poor historian. Uses wheelchair/chair lifts. EMR was reviewed-pt was admitted 10/22-10/26 for cough, CAP and new facial parethesias/stroke eval. COVID pcr, influenza A/B were negative. Heart Score: Risk Scores: Score 0 - 3: 2.5% MACE over next 6 weeks - Discharge Home Score 4 - 6: 20.3% MACE over next 6 weeks - Admit for Clinical Observation Score 7 - 10: 72.7% MACE over next 6 weeks - Early Invasive Strategies Current Medications: Current Medications Medications (Trade) Dose Ordered Sig/Kareem Start Time Stop Time Status Last Admin Dose Admin Famotidine (Pepcid Vial) 20 mg 1X ONCE 12/02/19 06:00 12/02/19 06:01 DC 12/02/19 06:18 20 MG Ondansetron HCl (Zofran) 4 mg 1X ONCE 12/02/19 06:00 12/02/19 06:01 DC 12/02/19 06:18 4 MG Sodium Chloride 1,000 ml @ 1,000 mls/hr 1X ONCE 12/02/19 06:00 12/02/19 06:59 12/02/19 06:19 1,000 MLS/HR Allergies: Allergies: Allergies Coded Allergies Type Severity Reaction Last Updated Verified phenazopyridine Allergy Intermediate 12/07/15 Yes strawberry Allergy Intermediate hives 11/22/19 Yes Physical Exam: PE: Constitutional: poor hygiene, rn removed bed bugs, no acute distress, non-toxic appearance. [] HENT: Normocephalic, atraumatic, bilateral external ears normal, oropharynx moist, no oral exudates, nose normal. [] Eyes: EOMI, conjunctiva normal, no discharge. no signs of head trauma Neck: Normal range of motion, no tenderness, supple, no stridor. [] Cardiovascular:Heart rate regular rhythm, no murmur [] Lungs & Thorax: Bilateral breath sounds clear to auscultation [] Abdomen: +LLQ pain - distended, Bowel sounds normal, no masses, no pulsatile masses. [] Skin: Warm, dry, no erythema, no rash. [] Back: No tenderness, no CVA tenderness. [] Extremities: No tenderness, no cyanosis, no clubbing, ROM intact, no edema. [] Neurologic: Alert and oriented X 3, normal motor function, normal sensory function, no focal deficits noted. [] Psychologic: Affect normal, judgement normal, mood normal. [] Current Patient Data: Labs: Laboratory Tests Test 12/02/19 05:35 White Blood Count 12.6 x10^3/uL (4.0-11.0) H Red Blood Count 3.79 x10^6/uL (3.50-5.40) Hemoglobin 10.7 g/dL (12.0-15.5) L Hematocrit 32.7 % (36.0-47.0) L Mean Corpuscular Volume 86 fL (79-100) Mean Corpuscular Hemoglobin 28 pg (25-35) Mean Corpuscular Hemoglobin Concent 33 g/dL (31-37) Red Cell Distribution Width 20.1 % (11.5-14.5) H Platelet Count 299 x10^3/uL (140-400) Neutrophils (%) (Auto) 85 % (31-73) H Lymphocytes (%) (Auto) 6 % (24-48) L Monocytes (%) (Auto) 8 % (0-9) Eosinophils (%) (Auto) 1 % (0-3) Basophils (%) (Auto) 0 % (0-3) Neutrophils # (Auto) 10.8 x10^3/uL (1.8-7.7) H Lymphocytes # (Auto) 0.8 x10^3/uL (1.0-4.8) L Monocytes # (Auto) 1.0 x10^3/uL (0.0-1.1) Eosinophils # (Auto) 0.1 x10^3/uL (0.0-0.7) Basophils # (Auto) 0.0 x10^3/uL (0.0-0.2) Platelet Estimate Pending Sodium Level 137 mmol/L (136-145) Potassium Level 4.1 mmol/L (3.5-5.1) Chloride Level 100 mmol/L (98-107) Carbon Dioxide Level 34 mmol/L (21-32) H Anion Gap 3 (6-14) L Blood Urea Nitrogen 17 mg/dL (7-20) Creatinine 0.9 mg/dL (0.6-1.0) Estimated GFR (Cockcroft-Gault) 60.2 BUN/Creatinine Ratio 19 (6-20) Glucose Level 165 mg/dL (70-99) H Calcium Level 10.2 mg/dL (8.5-10.1) H Magnesium Level Pending Total Bilirubin Pending Aspartate Amino Transferase (AST) Pending Alanine Aminotransferase (ALT) Pending Alkaline Phosphatase Pending Total Protein Pending Albumin Pending Albumin/Globulin Ratio Pending Lipase Pending Laboratory Tests 12/02/19 05:35 Laboratory Tests 12/02/19 05:35 Vital Signs: Vital Signs Date Time Temp Pulse Resp B/P (MAP) Pulse Ox O2 Delivery O2 Flow Rate FiO2 12/02/19 05:58 98.3 88 20 168/78 (108) 96 Nasal Cannula 2.0 98.3 EKG: EKG: Sinus rhythm at 96 bpm, extreme right axis deviation T wave inversion 1 and aVL, no ST elevations or ST depressions Radiology/Procedures: Impression: Impression: Patient presented to the ED with complaints of left lower quadrant abdominal pain but denied any falls or traumas. I spoke with radiologist who is concerned for very large retroperitoneal hemorrhage versus abscess. Patient was started on broad-spectrum antibiotics. Patient is accepted by Dr. Montez to the ICU. INR reported after I gave report was above 15. Vitamin K and FFP were started (PCC would take 2 hours to get from another hospital). CT of the head and cervical spine without contrast are pending -will need repeat in 12 hours given recent IV contrast for CT abd. patient is a very poor historian, presented to the ED with bedbugs. I do not feel the patient is able to care for herself will likely need long-term placement. Course & Med Decision Making: Course & Med Decision Making Pertinent Labs and Imaging studies reviewed. (See chart for details) Critical care time was 60 minutes which includes time at bedside, spent in discussion of patient's care with specialist and/or family members, with interpretation of laboratory and/or radiological studies and is exclusive of procedures. [] Dragon Disclaimer: Dragon Disclaimer: This electronic medical record was generated, in whole or in part, using a voice recognition dictation system. Departure Departure Impression: Primary Impression: Retroperitoneal hematoma Additional Impression: Supratherapeutic INR Disposition: ADMITTED INPATIENT Admitting Physician: APOLINAR Condition: CRITICAL Referrals: LEONCIO OSEGEURA MD (PCP) VIRIDIANA SIERRA DO December 02, 2019 06:28
[2019-12-02 06:38] LABS: CREATINE KINASE 24 U/L (26-192)
[2019-12-02 06:40] LABS: BACTERIA,URINE MODERATE /HPF (0-FEW); RBC,URINE 20-40 /HPF (0-2); SQUAMOUS EPITHELIAL CELL,UR MOD /LPF
[2019-12-02 06:41] LABS: YEAST,URINE PRESENT /HPF
[2019-12-02] MEDS ORDERED: CONTRAST GIVEN. MC PRN (06:45)
[2019-12-02] MEDS ORDERED: IOHEXOL 300 MG/ML 100ML VIAL. IV ONE (06:45)
--- NOTE | 2019-12-02 06:46 | EKG ---
[address] [place] [address] Test Date: 2019-12-02 Test Time: 05:51:17 Pat Name: RIKY PRATT Department: Room: Gender: F Oncology Physician: : [id number] Requested By: HILARY PATEL Order Number: [id number] Reading MD: Brigido Corbin Measurements Intervals [place] Rate: 96 P: 167 GA: 190 QRS: 214 QRSD: 114 T: 122 QT: 338 QTc: 428 Interpretive Statements SINUS RHYTHM QRS(T) CONTOUR ABNORMALITY CONSISTENT WITH ANTEROSEPTAL INFARCT PROBABLY OLD CONSISTENT WITH HIGH LATERAL INFARCT AGE UNDETERMINED ABNORMAL ECG Electronically Signed On 12-02-2019 8:45:11 CDT by Brigido Corbin
[2019-12-02] MEDS ORDERED: VANCOMYCIN 1.75 GM in IV NORMAL SALINE 500ML BAG 500 ML IV SCH (07:41)
[2019-12-02] MEDS ORDERED: PIPERACILLIN/TAZOBACTAM 4.5 GM in IV NORMAL SALINE 100ML 100 ML IV ONE (07:45)
[2019-12-02 07:51] LABS: % LYMPHS 3 % (24-48); % MONOS 8 % (0-10); % SEGS 89 % (35-66); PLT ESTIMATE ADEQUATE (ADEQUATE)
[2019-12-02 07:52] LABS: ANISOCYTOSIS MOD; POLYCHROMASIA SLIGHT; TEAR DROP CELLS OCC
--- NOTE | 2019-12-02 07:53 | RAD ---
PQRS Compliance Statement: One or more of the following individualized dose reduction techniques were utilized for this examination: 1. Automated exposure control 2. Adjustment of the mA and/or kV according to patient size 3. Use of iterative reconstruction technique CT abdomen/pelvis with contrast 12/02/2019 5:38 AM INDICATION: Abdominal pain, nausea, vomiting and diarrhea. COMPARISON: CT abdomen and pelvis 11/11/2012 TECHNIQUE: Multiple axial CT images of the abdomen and pelvis were obtained after the intravenous administration of 75 mL Omnipaque 300. Coronal and sagittal reformats are provided. FINDINGS: Small left and trace right pleural effusions with adjacent consolidative change suggestive of compressive atelectasis or infiltrates. Heart size is within normal limits. Liver is normal in appearance. Hypoattenuating lesion within the spleen measures 14 mm, new from the prior examination of 11/11/2012. Left adrenal nodule has increased in size measuring 2.1 x 1.9 cm, previously measuring 1.9 x 1.5 cm. Right adrenal gland is normal. Pancreas is normal in appearance. Large lamellated calcified gallstones are present without adjacent plantar changes. Abdominal aorta is normal in course and caliber. There is no free intraperitoneal air. There is a large left retroperitoneal fluid collection measuring 15.0 x 15.6 x 18.0 cm. There is shaggy rim enhancement. The fluid collection closely abuts the posterior cortex of the left kidney with mild focal irregularity involving the renal cortex along the posterior lateral interpolar left kidney (series 2, image 24). Adjacent fat stranding is noted in the perirenal fat. Collection extends inferiorly to the level of the left acetabulum. No definite evidence for active contrast extravasation. The renal hilum appears intact. Large staghorn calculi are identified within left renal pelvis. Left ureter is displaced anteromedially as is the left kidney. Right renal parapelvic cyst is present. No hydronephrosis is visualized. Urinary bladder is within normal limits given degree of distention. Uterus is normal in appearance by CT. The left sella as muscle is inseparable from the left retroperitoneal fluid collection. The left colon is displaced anteriorly. Moderate diverticulosis. No pericolonic inflammatory changes are present. Appendix is not definitively visualized. No pericecal inflammatory changes are identified. No suspicious osseous abnormality is identified. Superior endplate concavity of L4 appears chronic. Bridging anterior marginal osteophytosis noted within the thoracolumbar spine suggestive of diffuse idiopathic skeletal hyperostosis. There is a minimally displaced posterolateral left 10th rib fracture. IMPRESSION: 1. 15.0 x 15.6 x 18.0 cm left retroperitoneal fluid collection with shaggy rim enhancement. Differential considerations include a liquefied hematoma, possibly from left renal cortical injury given posterolateral left 10th rib fracture ( Grade II AAST injury, less than 1 cm laceration with possible hematoma localized within the perirenal fascia). Collection extends inferiorly to the level of the left acetabulum. Alternate consideration may be given for an abscess. These findings are not definitively associated with left renal staghorn calculus. 2. Left renal staghorn calculus. No hydronephrosis or CT evidence for xanthogranulomatous pyelonephritis. 3. Minimally displaced posterolateral left 10th rib fracture. 4. Trace right and small left pleural effusions with adjacent compressive atelectasis versus infiltrates. 5. Marginal increase in left adrenal nodule, indeterminate although favoring benign given only marginal increase since 2013. Adrenal mass protocol CT could be of benefit for further evaluation. 6. New indeterminate hypodensity within the spleen measures 14 mm. Six-month follow-up CT abdomen could be of benefit to assess stability as findings are indeterminate by CT. Primary consideration in the absence of underlying malignancy may be given for a hemangioma or lymphangioma versus splenic cyst. FOR INTERNAL CODING PURPOSES Critical result: Findings discussed with Dr. Valladares at 12/02/2019 7:49 AM. RESULT CODE: (C) Electronically signed by: Rajni Tellez MD (12/02/2019 7:51 AM) [id number]
[2019-12-02 08:28] LABS: PARTIAL THROMBOPLASTIN TIME 94 SEC (24-38)
[2019-12-02 08:39] LABS: PROTHROMBIN TIME PATIENT > 120.0 SEC (11.7-14.0)
[2019-12-02] MEDS ORDERED: PHYTONADIONE (VIT K1) IV 10 MG in IV DEXTROSE 5% 50 ML IV ONE (09:15)
[2019-12-02] MEDS ORDERED: METOCLOPRAMIDE HCL 10 MG/2 ML VIAL. IVP ONE (09:45)
--- NOTE | 2019-12-02 10:09 | PDOC1 ---
History and Physical Date of Admission Date of Admission DATE: 12/02/19 TIME: 10:07 Identification/Chief Complaint Chief Complaint SEEN IN ER WITH LARGE LEFT RETROPERITONEAL HEMATOMA , POSSIBLE RENAL INJURY from 10th rib laceration Left ureter is displaced anteromedially as is the left kidney. Right renal parapelvic cyst is present. No hydronephrosis is visualized. 79 year old F past medical history of diabetes, obesity, hypertension, HLD, HRpEF, hyperlipidemia, COPD on 1.5L O2, atrial fibrillation and h/o DVT on Coumadin, with recent stroke November 21, presents the ED from home with complaints of " it is my COPD." States she's have sharp nonradiating LLQ abdominal pain that started around 4am, last meal 5pm last night. Reports associated nausea, nonbloody nonbilious vomiting. INR> 15 D/W ER DR Suggest transfer to [facility], as we do not have urology services here Past Medical History Past Medical History Past Medical History Past Medical History: A-Fib, COPD, Diabetes-Type II, DVT, High Cholesterol, H ypertension, Stroke Past Surgical History: Other Additional Past Surgical Histo: ovarian cyst surgery, cyst removal from neck Smoking Status: Former Smoker Alcohol Use: None Drug Use: None admitted 10/22-10/26 for cough, CAP and new facial parethesias/stroke eval. COVID pcr, influenza A/B were negative. FHX COPD Cardiovascular: AFIB, HTN Pulmonary: COPD Endocrine: Diabetes Past Surgical History Past Surgical History: No pertinent history Family History Family History: Hypertension Social History Smoke: Quit ALCOHOL: none Drugs: None Current Problem List Problem List Problems Medical Problems: (1) Retroperitoneal abscess Status: Acute (2) Retroperitoneal hematoma Status: Acute (3) Supratherapeutic INR Status: Acute Current Medications Current Medications Current Medications Ondansetron HCl (Zofran) 4 mg 1X ONCE IVP Last administered on 12/02/19at 06:18; Start 12/02/19 at 06:00; Stop 12/02/19 at 06:01; Status DC Famotidine (Pepcid Vial) 20 mg 1X ONCE IVP Last administered on 12/02/19at 06:18; Start 12/02/19 at 06:00; Stop 12/02/19 at 06:01; Status DC Sodium Chloride 1,000 ml @ 1,000 mls/hr 1X ONCE IV Last administered on 12/02/19at 06:19; Start 12/02/19 at 06:00; Stop 12/02/19 at 06:59; Status DC Iohexol (Omnipaque 300 Mg/ml) 75 ml 1X ONCE IV Last administered on 12/02/19at 07:14; Start 12/02/19 at 06:45; Stop 12/02/19 at 06:46; Status DC Info (CONTRAST GIVEN -- Rx MONITORING) 1 each PRN DAILY PRN MC SEE COMMENTS; Start 12/02/19 at 06:45; Stop 12/04/19 at 06:44 Piperacillin Sod/ Tazobactam Sod 4.5 gm/Sodium Chloride 100 ml @ 200 mls/hr 1X ONCE IV Last administered on 12/02/19at 09:02; Start 12/02/19 at 07:45; Stop 12/02/19 at 08:14; Status DC Vancomycin HCl 1.75 gm/Sodium Chloride 500 ml @ 250 mls/hr 1X IV ; Start 12/02/19 at 07:41 Ondansetron HCl (Zofran) 4 mg 1X ONCE IVP Last administered on 12/02/19at 08:08; Start 12/02/19 at 07:45; Stop 12/02/19 at 07:53; Status DC Phytonadione 10 mg/Dextrose 51 ml @ 102 mls/hr 1X ONCE IV Last administered on 12/02/19at 09:41; Start 12/02/19 at 09:15; Stop 12/02/19 at 09:44; Status DC Metoclopramide HCl (Reglan Vial) 10 mg 1X ONCE IVP Last administered on 12/02/19at 09:38; Start 12/02/19 at 09:45; Stop 12/02/19 at 09:46; Status DC Active Scripts Active Januvia (Sitagliptin Phosphate) 50 Mg Tablet 1 Tab PO DAILY Amox Tr-K Clv 500-125 Mg Tab (Amoxicillin/Potassium Clav) 1 Each Tablet 1 Tab PO BID 5 Days Reported Alendronate Sodium 70 Mg Tablet 1 Tab PO WEEKLY Diphenhydramine Hcl 25 Mg Tablet 25 Mg PO PRN Q6-8HRS PRN Simvastatin 10 Mg Tablet 1 Tab PO QHS Warfarin Sodium 6 Mg Tablet 6 Mg PO DAILY Calcium 600 + Vit D3 Tablet (Calcium Carbonate/Vitamin D3) 1 Each Tablet 1 Tab PO DAILY 30 Days Losartan Potassium 50 Mg Tablet 25 Mg PO DAILY Furosemide 40 Mg Tablet 1 Tab PO DAILY Klor-Con M10 (Potassium Chloride) 10 Meq Tab.er.prt 10 Meq PO DAILY Allergies Allergies: Coded Allergies: phenazopyridine (Verified Allergy, Intermediate, 12/07/15) strawberry (Verified Allergy, Intermediate, hives, 11/22/19) ROS General: YES: Chills, Fatigue ALLERGY AND IMMUNOLOGY: YES: Hives Hematological and Lymphatic: YES: Bleeding Problems ENDOCRINE: YES: Malaise/lethargy Respiratory: YES: Cough, Shortness of breath, SOB with excertion Gastrointestinal: Yes Nausea, Yes Abdominal Pain Genitourinary: YES Dysuria, YES Retention Musculoskeletal: Yes Gait Disturbance, Yes Joint Stiffness Neurological: No Behavorial Changes, No Bowel/Bladder ControlChng, No Confusion, No Dizziness, No Gait Disturbance, No Headaches, No Impaired Coord/balance, No Memory Loss, No Numbness/Tingling, No Seizures, No Speech Problems, No Tremors, No Visual Changes, No Weakness, No Other Skin: No Dry Skin, No Eczema, No Hair Changes, No Lumps, No Mole Changes, No Mottling, No Nail Changes, No Pruritus, No Rash, No Skin Lesion Changes, No Other, No Acne Physical Exam Physical Exam MODERATE DISTRESS LYING LEFT SIDE HENT: Normocephalic, atraumatic, bilateral external ears normal, oropharynx moist, no oral exudates, nose normal. [] Eyes: PERRLA, EOMI, conjunctiva normal, no discharge. [] Neck: Normal range of motion, no tenderness, supple, no stridor. [] Cardiovascular:Heart rate regular rhythm, no murmur [] Lungs & Thorax: Bilateral breath sounds clear to auscultation [] Abdomen: OBESE no pulsatile masses. [] Skin: Warm, dry, no erythema, no rash. [] Back: No tenderness, no CVA tenderness. [] Extremities: No tenderness, no cyanosis, no clubbing, ROM intact, no edema. [] Neurologic: Alert and oriented X 3, General: moderate distress Vitals Vitals Vital Signs Date Time Temp Pulse Resp B/P (MAP) Pulse Ox O2 Delivery O2 Flow Rate FiO2 12/02/19 09:15 84 146/63 (90) 94 Nasal Cannula 2.0 12/02/19 07:16 16 12/02/19 05:58 98.3 98.3 Labs Labs Laboratory Tests Test 12/02/19 05:35 12/02/19 06:05 12/02/19 06:15 12/02/19 07:50 White Blood Count 12.6 x10^3/uL (4.0-11.0) Red Blood Count 3.79 x10^6/uL (3.50-5.40) Hemoglobin 10.7 g/dL (12.0-15.5) Hematocrit 32.7 % (36.0-47.0) Mean Corpuscular Volume 86 fL (79-100) Mean Corpuscular Hemoglobin 28 pg (25-35) Mean Corpuscular Hemoglobin Concent 33 g/dL (31-37) Red Cell Distribution Width 20.1 % (11.5-14.5) Platelet Count 299 x10^3/uL (140-400) Neutrophils (%) (Auto) 85 % (31-73) Lymphocytes (%) (Auto) 6 % (24-48) Monocytes (%) (Auto) 8 % (0-9) Eosinophils (%) (Auto) 1 % (0-3) Basophils (%) (Auto) 0 % (0-3) Neutrophils # (Auto) 10.8 x10^3/uL (1.8-7.7) Lymphocytes # (Auto) 0.8 x10^3/uL (1.0-4.8) Monocytes # (Auto) 1.0 x10^3/uL (0.0-1.1) Eosinophils # (Auto) 0.1 x10^3/uL (0.0-0.7) Basophils # (Auto) 0.0 x10^3/uL (0.0-0.2) Segmented Neutrophils % 89 % (35-66) Lymphocytes % 3 % (24-48) Monocytes % 8 % (0-10) Platelet Estimate Adequate (ADEQUATE) Polychromasia Slight Anisocytosis Mod Tear Drop Cells Occ Sodium Level 137 mmol/L (136-145) Potassium Level 4.1 mmol/L (3.5-5.1) Chloride Level 100 mmol/L (98-107) Carbon Dioxide Level 34 mmol/L (21-32) Anion Gap 3 (6-14) Blood Urea Nitrogen 17 mg/dL (7-20) Creatinine 0.9 mg/dL (0.6-1.0) Estimated GFR (Cockcroft-Gault) 60.2 BUN/Creatinine Ratio 19 (6-20) Glucose Level 165 mg/dL (70-99) Calcium Level 10.2 mg/dL (8.5-10.1) Magnesium Level 1.8 mg/dL (1.8-2.4) Total Bilirubin 0.6 mg/dL (0.2-1.0) Aspartate Amino Transf (AST/SGOT) 16 U/L (15-37) Alanine Aminotransferase (ALT/SGPT) 8 U/L (14-59) Alkaline Phosphatase 82 U/L (46-116) Creatine Kinase 24 U/L (26-192) Creatine Kinase MB (Mass) < 0.5 ng/mL (0.0-3.6) Creatine Kinase MB Relative Index % (0-4) Troponin I Quantitative < 0.017 ng/mL (0.000-0.055) Total Protein 6.1 g/dL (6.4-8.2) Albumin 2.1 g/dL (3.4-5.0) Albumin/Globulin Ratio 0.5 (1.0-1.7) Lipase 37 U/L (73-393) Urine Collection Type Unknown Urine Color Yellow Urine Clarity Clear Urine pH 6.0 (<5.0-8.0) Urine Specific [place] 1.020 (1.000-1.030) Urine Protein Negative mg/dL (NEG-TRACE) Urine Glucose (UA) Negative mg/dL (NEG) Urine Ketones (Stick) Negative mg/dL (NEG) Urine Blood Moderate (NEG) Urine Nitrite Negative (NEG) Urine Bilirubin Negative (NEG) Urine Urobilinogen Dipstick 1.0 mg/dL (0.2 mg/dL) Urine Leukocyte Esterase Moderate (NEG) Urine RBC 20-40 /HPF (0-2) Urine WBC 11-20 /HPF (0-4) Urine Squamous Epithelial Cells Mod /LPF Urine Bacteria Moderate /HPF (0-FEW) Urine Mucus Mod /LPF Urine Yeast Present /HPF Lactic Acid Level 1.6 mmol/L (0.4-2.0) 0.9 mmol/L (0.4-2.0) Prothrombin Time > 120.0 SEC (11.7-14.0) Prothromb Time International Ratio > 15.0 (0.8-1.1) Activated Partial Thromboplast Time 94 SEC (24-38) Test 12/02/19 08:15 Glucose (Fingerstick) 188 mg/dL (70-99) Laboratory Tests Test 12/02/19 05:35 12/02/19 06:05 12/02/19 06:15 12/02/19 07:50 White Blood Count 12.6 x10^3/uL (4.0-11.0) Red Blood Count 3.79 x10^6/uL (3.50-5.40) Hemoglobin 10.7 g/dL (12.0-15.5) Hematocrit 32.7 % (36.0-47.0) Mean Corpuscular Volume 86 fL (79-100) Mean Corpuscular Hemoglobin 28 pg (25-35) Mean Corpuscular Hemoglobin Concent 33 g/dL (31-37) Red Cell Distribution Width 20.1 % (11.5-14.5) Platelet Count 299 x10^3/uL (140-400) Neutrophils (%) (Auto) 85 % (31-73) Lymphocytes (%) (Auto) 6 % (24-48) Monocytes (%) (Auto) 8 % (0-9) Eosinophils (%) (Auto) 1 % (0-3) Basophils (%) (Auto) 0 % (0-3) Neutrophils # (Auto) 10.8 x10^3/uL (1.8-7.7) Lymphocytes # (Auto) 0.8 x10^3/uL (1.0-4.8) Monocytes # (Auto) 1.0 x10^3/uL (0.0-1.1) Eosinophils # (Auto) 0.1 x10^3/uL (0.0-0.7) Basophils # (Auto) 0.0 x10^3/uL (0.0-0.2) Segmented Neutrophils % 89 % (35-66) Lymphocytes % 3 % (24-48) Monocytes % 8 % (0-10) Platelet Estimate Adequate (ADEQUATE) Polychromasia Slight Anisocytosis Mod Tear Drop Cells Occ Sodium Level 137 mmol/L (136-145) Potassium Level 4.1 mmol/L (3.5-5.1) Chloride Level 100 mmol/L (98-107) Carbon Dioxide Level 34 mmol/L (21-32) Anion Gap 3 (6-14) Blood Urea Nitrogen 17 mg/dL (7-20) Creatinine 0.9 mg/dL (0.6-1.0) Estimated GFR (Cockcroft-Gault) 60.2 BUN/Creatinine Ratio 19 (6-20) Glucose Level 165 mg/dL (70-99) Calcium Level 10.2 mg/dL (8.5-10.1) Magnesium Level 1.8 mg/dL (1.8-2.4) Total Bilirubin 0.6 mg/dL (0.2-1.0) Aspartate Amino Transf (AST/SGOT) 16 U/L (15-37) Alanine Aminotransferase (ALT/SGPT) 8 U/L (14-59) Alkaline Phosphatase 82 U/L (46-116) Creatine Kinase 24 U/L (26-192) Creatine Kinase MB (Mass) < 0.5 ng/mL (0.0-3.6) Creatine Kinase MB Relative Index % (0-4) Troponin I Quantitative < 0.017 ng/mL (0.000-0.055) Total Protein 6.1 g/dL (6.4-8.2) Albumin 2.1 g/dL (3.4-5.0) Albumin/Globulin Ratio 0.5 (1.0-1.7) Lipase 37 U/L (73-393) Urine Collection Type Unknown Urine Color Yellow Urine Clarity Clear Urine pH 6.0 (<5.0-8.0) Urine Specific [place] 1.020 (1.000-1.030) Urine Protein Negative mg/dL (NEG-TRACE) Urine Glucose (UA) Negative mg/dL (NEG) Urine Ketones (Stick) Negative mg/dL (NEG) Urine Blood Moderate (NEG) Urine Nitrite Negative (NEG) Urine Bilirubin Negative (NEG) Urine Urobilinogen Dipstick 1.0 mg/dL (0.2 mg/dL) Urine Leukocyte Esterase Moderate (NEG) Urine RBC 20-40 /HPF (0-2) Urine WBC 11-20 /HPF (0-4) Urine Squamous Epithelial Cells Mod /LPF Urine Bacteria Moderate /HPF (0-FEW) Urine Mucus Mod /LPF Urine Yeast Present /HPF Lactic Acid Level 1.6 mmol/L (0.4-2.0) 0.9 mmol/L (0.4-2.0) Prothrombin Time > 120.0 SEC (11.7-14.0) Prothromb Time International Ratio > 15.0 (0.8-1.1) Activated Partial Thromboplast Time 94 SEC (24-38) Test 12/02/19 08:15 Glucose (Fingerstick) 188 mg/dL (70-99) Images Images One or more of the following individualized dose reduction techniques were utilized for this examination: 1. Automated exposure control 2. Adjustment of the mA and/or kV according to patient size 3. Use of iterative reconstruction technique CT abdomen/pelvis with contrast 12/02/2019 5:38 AM INDICATION: Abdominal pain, nausea, vomiting and diarrhea. COMPARISON: CT abdomen and pelvis 11/11/2012 TECHNIQUE: Multiple axial CT images of the abdomen and pelvis were obtained after the intravenous administration of 75 mL Omnipaque 300. Coronal and sagittal reformats are provided. FINDINGS: Small left and trace right pleural effusions with adjacent consolidative change suggestive of compressive atelectasis or infiltrates. Heart size is within normal limits. Liver is normal in appearance. Hypoattenuating lesion within the spleen measures 14 mm, new from the prior examination of 11/11/2012. Left adrenal nodule has increased in size measuring 2.1 x 1.9 cm, previously measuring 1.9 x 1.5 cm. Right adrenal gland is normal. Pancreas is normal in appearance. Large lamellated calcified gallstones are present without adjacent plantar changes. Abdominal aorta is normal in course and caliber. There is no free intraperitoneal air. There is a large left retroperitoneal fluid collection measuring 15.0 x 15.6 x 18.0 cm. There is shaggy rim enhancement. The fluid collection closely abuts the posterior cortex of the left kidney with mild focal irregularity involving the renal cortex along the posterior lateral interpolar left kidney (series 2, image 24). Adjacent fat stranding is noted in the perirenal fat. Collection extends inferiorly to the level of the left acetabulum. No definite evidence for active contrast extravasation. The renal hilum appears intact. Large staghorn calculi are identified within left renal pelvis. Left ureter is displaced anteromedially as is the left kidney. Right renal parapelvic cyst is present. No hydronephrosis is visualized. Urinary bladder is within normal limits given degree of distention. Uterus is normal in appearance by CT. The left sella as muscle is inseparable from the left retroperitoneal fluid collection. The left colon is displaced anteriorly. Moderate diverticulosis. No pericolonic inflammatory changes are present. Appendix is not definitively visualized. No pericecal inflammatory changes are identified. No suspicious osseous abnormality is identified. Superior endplate concavity of L4 appears chronic. Bridging anterior marginal osteophytosis noted within the thoracolumbar spine suggestive of diffuse idiopathic skeletal hyperostosis. There is a minimally displaced posterolateral left 10th rib fracture. IMPRESSION: 1. 15.0 x 15.6 x 18.0 cm left retroperitoneal fluid collection with shaggy rim enhancement. Differential considerations include a liquefied hematoma, possibly from left renal cortical injury given posterolateral left 10th rib fracture ( Grade II AAST injury, less than 1 cm laceration with possible hematoma localized within the perirenal fascia). Collection extends inferiorly to the level of the left acetabulum. Alternate consideration may be given for an abscess. These findings are not definitively associated with left renal staghorn calculus. 2. Left renal staghorn calculus. No hydronephrosis or CT evidence for xanthogranulomatous pyelonephritis. 3. Minimally displaced posterolateral left 10th rib fracture. 4. Trace right and small left pleural effusions with adjacent compressive atelectasis versus infiltrates. 5. Marginal increase in left adrenal nodule, indeterminate although favoring benign given only marginal increase since 2013. Adrenal mass protocol CT could be of benefit for further evaluation. 6. New indeterminate hypodensity within the spleen measures 14 mm. Six-month follow-up CT abdomen could be of benefit to assess stability as findings are indeterminate by CT. Primary consideration in the absence of underlying malignancy may be given for a hemangioma or lymphangioma versus splenic cyst. FOR INTERNAL CODING PURPOSES Critical result: Findings discussed with Dr. Valladares at 12/02/2019 7:49 AM. RESULT CODE: (C) Electronically signed by: Juana Hairston MD (12/02/2019 7:51 AM) [id number] DICTATED and SIGNED BY: JUANA HAIRSTON MD DATE: 12/02/19 0751 VTE Prophylaxis Ordered VTE Prophylaxis Devices: Contraindicated VTE Pharmacological Prophylaxi: Contraindicated Assessment/Plan Assessment/Plan IMPRESSION: ACUTE 15.0 x 15.6 x 18.0 cm left retroperitoneal fluid collection with shaggy rim enhancement. CONSIDER liquefied hematoma, possibly from left renal cortical injury given posterolateral left 10th rib fracture ( Grade II AAST injury, less than 1 cm laceration with possible hematoma localized within the perirenal fascia). Collection extends inferiorly to the level of the left acetabulum. differential consideration //for an abscess. Chronic diastolic CHF Left ureter is displaced anteromedially as is the left kidney. Right renal parapelvic cyst is present. No hydronephrosis is visualized. UTI SEPSIS A-Fib, HX ON WARFARIN SUPRATHERAPEUTIC INR Severe malnutrition, w. obesity, BMI 34 COPD - apparently on home O2. Diabetes-Type II History of DVT History of High Cholesterol Essential hypertension PLAN Consider transfer to [facility] ID CONSULT GEN SURG CONSULT IR CONSULT FFP NPO ICU BED BLOOD CULTURE INR AT NOON EMPERIC IV ANTIBIOTICS PULM CONSULT D/W DR AMES AND ER , /// AGREES WITH NEED TO TRANSFER TO [facility] 10:32 AM 46 MIN CC TIME CARLOS MAN MD December 02, 2019 10:09
--- NOTE | 2019-12-02 10:22 | RAD ---
CT head without contrast. CT cervical spine without contrast. PQRS statement: CT scans at this facility use dose reduction including either automated exposure control, iterative reconstructions, and /or weight based radiation dosing via mA and kV modification when appropriate to reduce radiation dose to as low as reasonably achievable. HISTORY: Trauma, bed bug infestation. COMPARISON: CT head November 25, 2019. CT head findings: Small chronic left cerebellar ischemic infarct stable. Dolichoectasia and calcified plaque intracranial arteries stable. Cerebral white matter heterogeneous hypoattenuation is stable most likely represents sequela of chronic small vessel ischemic disease. Small chronic right caudate nucleus ischemic infarct. No new infarct or acute ischemic change since prior imaging. No intracranial hemorrhage, mass or hydrocephalus. Orbits, mastoids, paranasal sinuses and bones are unremarkable. IMPRESSION: No acute abnormality. Stable exam. CT cervical spine findings: Craniocervical junction intact. Cervical vertebral body height and alignment intact. Left submandibular gland subcentimeter sialolith. No fracture of the cervical spine. Multilevel neural foraminal stenoses due to uncovertebral and facet spurring. There are scattered soft disc bulges and protrusions may contribute to at least mild spinal canal stenoses particularly at C3-C4 and C4-C5. Lung apices and paraspinal tissues are unremarkable. Multinodular thyroid with several indistinct nodules which may measure greater than 1 cm in size and calcifications, consider further assessment with outpatient sonography. IMPRESSION: 1. No acute osseous injury of the cervical spine. 2. Left submandibular sialolith. 3. Cervical disc disease and arthritis. 4. Multinodular thyroid as described above. Electronically signed by: Leeroy Paul MD (12/02/2019 10:19 AM) [facility]
--- NOTE | 2019-12-02 11:04 | EKG ---
[facility] [address] [place] [address] Test Date: 2019-12-02 Test Time: 08:23:56 Pat Name: RIKY PRATT Department: Room: 264 1 Gender: F Dry Sander: : 1940 Requested By: CARLOS MAN Order Number: [id number] Reading MD: Brigido Corbin Measurements Intervals [place] Rate: 91 P: 90 HI: 198 QRS: -40 QRSD: 114 T: 59 QT: 350 QTc: 432 Interpretive Statements SINUS RHYTHM ABNORMAL LEFT AXIS DEVIATION LEFT ANTERIOR FASCICULAR BLOCK LVH WITH REPOLARIZATION ABNORMALITY QRS(T) CONTOUR ABNORMALITY CONSIDER ANTEROSEPTAL MYOCARDIAL DAMAGE ABNORMAL ECG Electronically Signed On 12-03-2019 8:03:10 CDT by Brigido Corbin
[2019-12-02 12:29] LABS: BASO % 0 % (0-3); EOS % 0 % (0-3); HEMATOCRIT 29.5 % (36.0-47.0); HEMOGLOBIN 9.7 g/dL (12.0-15.5); LYMPH # 0.4 x10^3/uL (1.0-4.8); LYMPH % 3 % (24-48); MEAN CORPUSCULAR HEMOGLOBIN 29 pg (25-35); MEAN CORPUSCULAR HGB CONC 33 g/dL (31-37); MEAN CORPUSCULAR VOLUME 88 fL (79-100); MONO # 0.9 x10^3/uL (0.0-1.1); MONO % 8 % (0-9); NEUT # 9.7 x10^3/uL (1.8-7.7); NEUT % 88 % (31-73); PLATELET COUNT 231 x10^3/uL (140-400); RED BLOOD COUNT 3.37 x10^6/uL (3.50-5.40); RED CELL DISTRIBUTION WIDTH 20.8 % (11.5-14.5)
[2019-12-02 12:37] LABS: PROTHROMBIN TIME PATIENT 26.2 SEC (11.7-14.0)
--- NOTE | 2019-12-02 12:56 | PDOC2 ---
CONSULT Date of Consult Date of Consult DATE: 12/02/19 TIME: 12:53 Reason for Consult Reason for Consult: retroperitoneal hematoma Referring Physician Referring Physician: Dr. Montez Identification/Chief Complaint Chief Complaint left flank pain Source Source: Chart review, Patient History of Present Illness Reason for Visit: 79 yo F with c/o left flank pain. No recent trauma. Some increased difficulty breathing. Seen in ICU. Past Medical History Cardiovascular: AFIB, HTN Pulmonary: COPD Endocrine: Diabetes Past Surgical History Past Surgical History: No pertinent history Family History Family History: Hypertension Social History Quit ALCOHOL: none Drugs: None Current Problem List Problem List Problems Medical Problems: (1) Retroperitoneal abscess Status: Acute (2) Retroperitoneal hematoma Status: Acute (3) Supratherapeutic INR Status: Acute Current Medications Current Medications Current Medications Ondansetron HCl (Zofran) 4 mg 1X ONCE IVP Last administered on 12/02/19at 06:18; Start 12/02/19 at 06:00; Stop 12/02/19 at 06:01; Status DC Famotidine (Pepcid Vial) 20 mg 1X ONCE IVP Last administered on 12/02/19at 06:18; Start 12/02/19 at 06:00; Stop 12/02/19 at 06:01; Status DC Sodium Chloride 1,000 ml @ 1,000 mls/hr 1X ONCE IV Last administered on 12/02/19at 06:19; Start 12/02/19 at 06:00; Stop 12/02/19 at 06:59; Status DC Iohexol (Omnipaque 300 Mg/ml) 75 ml 1X ONCE IV Last administered on 12/02/19at 07:14; Start 12/02/19 at 06:45; Stop 12/02/19 at 06:46; Status DC Info (CONTRAST GIVEN -- Rx MONITORING) 1 each PRN DAILY PRN MC SEE COMMENTS; Start 12/02/19 at 06:45; Stop 12/04/19 at 06:44 Piperacillin Sod/ Tazobactam Sod 4.5 gm/Sodium Chloride 100 ml @ 200 mls/hr 1X ONCE IV Last administered on 12/02/19at 09:02; Start 12/02/19 at 07:45; Stop 12/02/19 at 08:14; Status DC Vancomycin HCl 1.75 gm/Sodium Chloride 500 ml @ 250 mls/hr 1X IV ; Start 12/02/19 at 07:41 Ondansetron HCl (Zofran) 4 mg 1X ONCE IVP Last administered on 12/02/19at 08:08; Start 12/02/19 at 07:45; Stop 12/02/19 at 07:53; Status DC Phytonadione 10 mg/Dextrose 51 ml @ 102 mls/hr 1X ONCE IV Last administered on 12/02/19at 09:41; Start 12/02/19 at 09:15; Stop 12/02/19 at 09:44; Status DC Metoclopramide HCl (Reglan Vial) 10 mg 1X ONCE IVP Last administered on 12/02/19at 09:38; Start 12/02/19 at 09:45; Stop 12/02/19 at 09:46; Status DC Active Scripts Active Januvia (Sitagliptin Phosphate) 50 Mg Tablet 1 Tab PO DAILY Reported Alendronate Sodium 70 Mg Tablet 1 Tab PO WEEKLY Diphenhydramine Hcl 25 Mg Tablet 25 Mg PO PRN Q6-8HRS PRN Simvastatin 10 Mg Tablet 1 Tab PO QHS Warfarin Sodium 6 Mg Tablet 6 Mg PO DAILY Calcium 600 + Vit D3 Tablet (Calcium Carbonate/Vitamin D3) 1 Each Tablet 1 Tab PO DAILY 30 Days Losartan Potassium 50 Mg Tablet 25 Mg PO DAILY Furosemide 40 Mg Tablet 1 Tab PO DAILY Klor-Con M10 (Potassium Chloride) 10 Meq Tab.er.prt 10 Meq PO DAILY Allergies Allergies: Coded Allergies: phenazopyridine (Verified Allergy, Intermediate, 12/07/15) strawberry (Verified Allergy, Intermediate, hives, 11/22/19) ROS Gastrointestinal: Yes Abdominal Pain Physical Exam General: Alert, Cooperative, mild distress HEENT: Atraumatic Lungs: Normal air movement Abdomen: Soft, Other (no ecchymosis or masses, obese) Vitals VITALS Vital Signs Date Time Temp Pulse Resp B/P (MAP) Pulse Ox O2 Delivery O2 Flow Rate FiO2 12/02/19 12:21 98.4 71 16 117/62 98.4 12/02/19 11:55 Nasal Cannula 2.0 12/02/19 11:49 100 Labs Labs Laboratory Tests Test 12/02/19 05:35 12/02/19 06:05 12/02/19 06:15 12/02/19 07:50 White Blood Count 12.6 x10^3/uL (4.0-11.0) Red Blood Count 3.79 x10^6/uL (3.50-5.40) Hemoglobin 10.7 g/dL (12.0-15.5) Hematocrit 32.7 % (36.0-47.0) Mean Corpuscular Volume 86 fL (79-100) Mean Corpuscular Hemoglobin 28 pg (25-35) Mean Corpuscular Hemoglobin Concent 33 g/dL (31-37) Red Cell Distribution Width 20.1 % (11.5-14.5) Platelet Count 299 x10^3/uL (140-400) Neutrophils (%) (Auto) 85 % (31-73) Lymphocytes (%) (Auto) 6 % (24-48) Monocytes (%) (Auto) 8 % (0-9) Eosinophils (%) (Auto) 1 % (0-3) Basophils (%) (Auto) 0 % (0-3) Neutrophils # (Auto) 10.8 x10^3/uL (1.8-7.7) Lymphocytes # (Auto) 0.8 x10^3/uL (1.0-4.8) Monocytes # (Auto) 1.0 x10^3/uL (0.0-1.1) Eosinophils # (Auto) 0.1 x10^3/uL (0.0-0.7) Basophils # (Auto) 0.0 x10^3/uL (0.0-0.2) Segmented Neutrophils % 89 % (35-66) Lymphocytes % 3 % (24-48) Monocytes % 8 % (0-10) Platelet Estimate Adequate (ADEQUATE) Polychromasia Slight Anisocytosis Mod Tear Drop Cells Occ Sodium Level 137 mmol/L (136-145) Potassium Level 4.1 mmol/L (3.5-5.1) Chloride Level 100 mmol/L (98-107) Carbon Dioxide Level 34 mmol/L (21-32) Anion Gap 3 (6-14) Blood Urea Nitrogen 17 mg/dL (7-20) Creatinine 0.9 mg/dL (0.6-1.0) Estimated GFR (Cockcroft-Gault) 60.2 BUN/Creatinine Ratio 19 (6-20) Glucose Level 165 mg/dL (70-99) Calcium Level 10.2 mg/dL (8.5-10.1) Magnesium Level 1.8 mg/dL (1.8-2.4) Total Bilirubin 0.6 mg/dL (0.2-1.0) Aspartate Amino Transf (AST/SGOT) 16 U/L (15-37) Alanine Aminotransferase (ALT/SGPT) 8 U/L (14-59) Alkaline Phosphatase 82 U/L (46-116) Creatine Kinase 24 U/L (26-192) Creatine Kinase MB (Mass) < 0.5 ng/mL (0.0-3.6) Creatine Kinase MB Relative Index % (0-4) Troponin I Quantitative < 0.017 ng/mL (0.000-0.055) Total Protein 6.1 g/dL (6.4-8.2) Albumin 2.1 g/dL (3.4-5.0) Albumin/Globulin Ratio 0.5 (1.0-1.7) Lipase 37 U/L (73-393) Urine Collection Type Unknown Urine Color Yellow Urine Clarity Clear Urine pH 6.0 (<5.0-8.0) Urine Specific [place] 1.020 (1.000-1.030) Urine Protein Negative mg/dL (NEG-TRACE) Urine Glucose (UA) Negative mg/dL (NEG) Urine Ketones (Stick) Negative mg/dL (NEG) Urine Blood Moderate (NEG) Urine Nitrite Negative (NEG) Urine Bilirubin Negative (NEG) Urine Urobilinogen Dipstick 1.0 mg/dL (0.2 mg/dL) Urine Leukocyte Esterase Moderate (NEG) Urine RBC 20-40 /HPF (0-2) Urine WBC 11-20 /HPF (0-4) Urine Squamous Epithelial Cells Mod /LPF Urine Bacteria Moderate /HPF (0-FEW) Urine Mucus Mod /LPF Urine Yeast Present /HPF Lactic Acid Level 1.6 mmol/L (0.4-2.0) 0.9 mmol/L (0.4-2.0) Prothrombin Time > 120.0 SEC (11.7-14.0) Prothromb Time International Ratio > 15.0 (0.8-1.1) Activated Partial Thromboplast Time 94 SEC (24-38) Test 12/02/19 08:15 12/02/19 12:15 Glucose (Fingerstick) 188 mg/dL (70-99) White Blood Count 11.0 x10^3/uL (4.0-11.0) Red Blood Count 3.37 x10^6/uL (3.50-5.40) Hemoglobin 9.7 g/dL (12.0-15.5) Hematocrit 29.5 % (36.0-47.0) Mean Corpuscular Volume 88 fL (79-100) Mean Corpuscular Hemoglobin 29 pg (25-35) Mean Corpuscular Hemoglobin Concent 33 g/dL (31-37) Red Cell Distribution Width 20.8 % (11.5-14.5) Platelet Count 231 x10^3/uL (140-400) Neutrophils (%) (Auto) 88 % (31-73) Lymphocytes (%) (Auto) 3 % (24-48) Monocytes (%) (Auto) 8 % (0-9) Eosinophils (%) (Auto) 0 % (0-3) Basophils (%) (Auto) 0 % (0-3) Neutrophils # (Auto) 9.7 x10^3/uL (1.8-7.7) Lymphocytes # (Auto) 0.4 x10^3/uL (1.0-4.8) Monocytes # (Auto) 0.9 x10^3/uL (0.0-1.1) Eosinophils # (Auto) 0.0 x10^3/uL (0.0-0.7) Basophils # (Auto) 0.0 x10^3/uL (0.0-0.2) Prothrombin Time 26.2 SEC (11.7-14.0) Prothromb Time International Ratio 2.4 (0.8-1.1) Laboratory Tests Test 12/02/19 05:35 12/02/19 06:05 12/02/19 06:15 12/02/19 07:50 White Blood Count 12.6 x10^3/uL (4.0-11.0) Red Blood Count 3.79 x10^6/uL (3.50-5.40) Hemoglobin 10.7 g/dL (12.0-15.5) Hematocrit 32.7 % (36.0-47.0) Mean Corpuscular Volume 86 fL (79-100) Mean Corpuscular Hemoglobin 28 pg (25-35) Mean Corpuscular Hemoglobin Concent 33 g/dL (31-37) Red Cell Distribution Width 20.1 % (11.5-14.5) Platelet Count 299 x10^3/uL (140-400) Neutrophils (%) (Auto) 85 % (31-73) Lymphocytes (%) (Auto) 6 % (24-48) Monocytes (%) (Auto) 8 % (0-9) Eosinophils (%) (Auto) 1 % (0-3) Basophils (%) (Auto) 0 % (0-3) Neutrophils # (Auto) 10.8 x10^3/uL (1.8-7.7) Lymphocytes # (Auto) 0.8 x10^3/uL (1.0-4.8) Monocytes # (Auto) 1.0 x10^3/uL (0.0-1.1) Eosinophils # (Auto) 0.1 x10^3/uL (0.0-0.7) Basophils # (Auto) 0.0 x10^3/uL (0.0-0.2) Segmented Neutrophils % 89 % (35-66) Lymphocytes % 3 % (24-48) Monocytes % 8 % (0-10) Platelet Estimate Adequate (ADEQUATE) Polychromasia Slight Anisocytosis Mod Tear Drop Cells Occ Sodium Level 137 mmol/L (136-145) Potassium Level 4.1 mmol/L (3.5-5.1) Chloride Level 100 mmol/L (98-107) Carbon Dioxide Level 34 mmol/L (21-32) Anion Gap 3 (6-14) Blood Urea Nitrogen 17 mg/dL (7-20) Creatinine 0.9 mg/dL (0.6-1.0) Estimated GFR (Cockcroft-Gault) 60.2 BUN/Creatinine Ratio 19 (6-20) Glucose Level 165 mg/dL (70-99) Calcium Level 10.2 mg/dL (8.5-10.1) Magnesium Level 1.8 mg/dL (1.8-2.4) Total Bilirubin 0.6 mg/dL (0.2-1.0) Aspartate Amino Transf (AST/SGOT) 16 U/L (15-37) Alanine Aminotransferase (ALT/SGPT) 8 U/L (14-59) Alkaline Phosphatase 82 U/L (46-116) Creatine Kinase 24 U/L (26-192) Creatine Kinase MB (Mass) < 0.5 ng/mL (0.0-3.6) Creatine Kinase MB Relative Index % (0-4) Troponin I Quantitative < 0.017 ng/mL (0.000-0.055) Total Protein 6.1 g/dL (6.4-8.2) Albumin 2.1 g/dL (3.4-5.0) Albumin/Globulin Ratio 0.5 (1.0-1.7) Lipase 37 U/L (73-393) Urine Collection Type Unknown Urine Color Yellow Urine Clarity Clear Urine pH 6.0 (<5.0-8.0) Urine Specific [place] 1.020 (1.000-1.030) Urine Protein Negative mg/dL (NEG-TRACE) Urine Glucose (UA) Negative mg/dL (NEG) Urine Ketones (Stick) Negative mg/dL (NEG) Urine Blood Moderate (NEG) Urine Nitrite Negative (NEG) Urine Bilirubin Negative (NEG) Urine Urobilinogen Dipstick 1.0 mg/dL (0.2 mg/dL) Urine Leukocyte Esterase Moderate (NEG) Urine RBC 20-40 /HPF (0-2) Urine WBC 11-20 /HPF (0-4) Urine Squamous Epithelial Cells Mod /LPF Urine Bacteria Moderate /HPF (0-FEW) Urine Mucus Mod /LPF Urine Yeast Present /HPF Lactic Acid Level 1.6 mmol/L (0.4-2.0) 0.9 mmol/L (0.4-2.0) Prothrombin Time > 120.0 SEC (11.7-14.0) Prothromb Time International Ratio > 15.0 (0.8-1.1) Activated Partial Thromboplast Time 94 SEC (24-38) Test 12/02/19 08:15 12/02/19 12:15 Glucose (Fingerstick) 188 mg/dL (70-99) White Blood Count 11.0 x10^3/uL (4.0-11.0) Red Blood Count 3.37 x10^6/uL (3.50-5.40) Hemoglobin 9.7 g/dL (12.0-15.5) Hematocrit 29.5 % (36.0-47.0) Mean Corpuscular Volume 88 fL (79-100) Mean Corpuscular Hemoglobin 29 pg (25-35) Mean Corpuscular Hemoglobin Concent 33 g/dL (31-37) Red Cell Distribution Width 20.8 % (11.5-14.5) Platelet Count 231 x10^3/uL (140-400) Neutrophils (%) (Auto) 88 % (31-73) Lymphocytes (%) (Auto) 3 % (24-48) Monocytes (%) (Auto) 8 % (0-9) Eosinophils (%) (Auto) 0 % (0-3) Basophils (%) (Auto) 0 % (0-3) Neutrophils # (Auto) 9.7 x10^3/uL (1.8-7.7) Lymphocytes # (Auto) 0.4 x10^3/uL (1.0-4.8) Monocytes # (Auto) 0.9 x10^3/uL (0.0-1.1) Eosinophils # (Auto) 0.0 x10^3/uL (0.0-0.7) Basophils # (Auto) 0.0 x10^3/uL (0.0-0.2) Prothrombin Time 26.2 SEC (11.7-14.0) Prothromb Time International Ratio 2.4 (0.8-1.1) Images Images left retroperitoneal hematoma, 10 th rib fracture Assessment/Plan Assessment/Plan Retroperitoneal hematoma agree with holding coumadin and correcting as needed appears stable no surgical plans. Should resolve with conservative measures. Thanks for consult! DALILA GARCIA MD December 02, 2019 12:56
--- NOTE | 2019-12-02 13:46 | NUR ---
SS following up with discharge planning. Pt transferring to for Peritoneal Abscess. Transfer request made to by RN. Pt accepted. Bed assignment [id number]. Report# [phone]. Accepting physician Dr. Vicente Torres. Images clouded to . Pt will discharge and go to via [facility] ambulance, . Packet, ambulance form, and transfer form on chart.
[2019-12-02 15:23] LABS: PROTHROMBIN TIME PATIENT 22.3 SEC (11.7-14.0)
--- NOTE | 2019-12-02 17:09 | NUR ---
Discharge Note: RIKY PRATT Discharge instructions and discharge home medications reviewed with Other facility and a copy given. All questions have been answered and understanding verbalized. The following instructions and handouts were given: Nursing report given to Rupa KIRBY RN. Labs, medication, H/P was discussed. Discontinued lines and drains: Lines stayed intact for transport. Patient discharged to [facility]. Patient was in need of a urologist. [facility] drove patient from [facility] facility.
--- NOTE | 2019-12-02 21:23 | PDOC3 ---
Discharge Summary Date of Admission: December 02, 2019 Date of Discharge: December 02, 2019 Follow-Up: 1-2 days Admitting Diagnosis comment: DISCHARGE DX Assessment/Plan IMPRESSION: ACUTE 15.0 x 15.6 x 18.0 cm left retroperitoneal fluid collection with shaggy rim enhancement. CONSIDER liquefied hematoma, possibly from left renal cortical injury given posterolateral left 10th rib fracture ( Grade II AAST injury, less than 1 cm laceration with possible hematoma localized within the perirenal fascia). Collection extends inferiorly to the level of the left acetabulum. differential consideration //for an abscess. Chronic diastolic CHF Left ureter is displaced anteromedially as is the left kidney. Right renal parapelvic cyst is present. No hydronephrosis is visualized. UTI SEPSIS A-Fib, HX ON WARFARIN SUPRATHERAPEUTIC INR Severe malnutrition, w. obesity, BMI 34 COPD - apparently on home O2. Diabetes-Type II History of DVT History of High Cholesterol Essential hypertension PLAN transfer to [facility] KATHLEEN, NEEDS UROLOGY CONSULTATION ID CONSULT GEN SURG CONSULT IR CONSULT FFP NPO ICU BED BLOOD CULTURE INR AT NOON EMPERIC IV ANTIBIOTICS PULM CONSULT D/W DR AMES AND ER DR, /// AGREES WITH NEED TO TRANSFER TO [facility] 10:32 AM 46 MIN CC TIME FINAL DIAGNOSIS Problems Medical Problems: (1) Retroperitoneal abscess Status: Acute (2) Retroperitoneal hematoma Status: Acute (3) Supratherapeutic INR Status: Acute Brief Hospital Course Ms. Romero is a 79 old [sex] who presented with [ ACUTE RETROPERITONEAL MASS , UTI, SUPRATHERAPEUTIC INR ] CONDITION AT DISCHARGE: Stable Discharge Medications Current Medications Ondansetron HCl (Zofran) 4 mg 1X ONCE IVP Last administered on 12/02/19at 06:18; Start 12/02/19 at 06:00; Stop 12/02/19 at 06:01; Status DC Famotidine (Pepcid Vial) 20 mg 1X ONCE IVP Last administered on 12/02/19at 06:18; Start 12/02/19 at 06:00; Stop 12/02/19 at 06:01; Status DC Sodium Chloride 1,000 ml @ 1,000 mls/hr 1X ONCE IV Last administered on 12/02/19at 06:19; Start 12/02/19 at 06:00; Stop 12/02/19 at 06:59; Status DC Iohexol (Omnipaque 300 Mg/ml) 75 ml 1X ONCE IV Last administered on 12/02/19at 07:14; Start 12/02/19 at 06:45; Stop 12/02/19 at 06:46; Status DC Info (CONTRAST GIVEN -- Rx MONITORING) 1 each PRN DAILY PRN MC SEE COMMENTS; Start 12/02/19 at 06:45; Stop 12/02/19 at 17:39; Status DC Piperacillin Sod/ Tazobactam Sod 4.5 gm/Sodium Chloride 100 ml @ 200 mls/hr 1X ONCE IV Last administered on 12/02/19at 09:02; Start 12/02/19 at 07:45; Stop 12/02/19 at 08:14; Status DC Vancomycin HCl 1.75 gm/Sodium Chloride 500 ml @ 250 mls/hr 1X IV ; Start 12/02/19 at 07:41; Stop 12/02/19 at 17:39; Status DC Ondansetron HCl (Zofran) 4 mg 1X ONCE IVP Last administered on 12/02/19at 08:08; Start 12/02/19 at 07:45; Stop 12/02/19 at 07:53; Status DC Phytonadione 10 mg/Dextrose 51 ml @ 102 mls/hr 1X ONCE IV Last administered on 12/02/19at 09:41; Start 12/02/19 at 09:15; Stop 12/02/19 at 09:44; Status DC Metoclopramide HCl (Reglan Vial) 10 mg 1X ONCE IVP Last administered on at 09:38; Start 12/02/19 at 09:45; Stop 12/02/19 at 09:46; Status DC Active Scripts Active Januvia (Sitagliptin Phosphate) 50 Mg Tablet 1 Tab PO DAILY Reported Alendronate Sodium 70 Mg Tablet 1 Tab PO WEEKLY Diphenhydramine Hcl 25 Mg Tablet 25 Mg PO PRN Q6-8HRS PRN Simvastatin 10 Mg Tablet 1 Tab PO QHS Warfarin Sodium 6 Mg Tablet 6 Mg PO DAILY Calcium 600 + Vit D3 Tablet (Calcium Carbonate/Vitamin D3) 1 Each Tablet 1 Tab PO DAILY 30 Days Losartan Potassium 50 Mg Tablet 25 Mg PO DAILY Furosemide 40 Mg Tablet 1 Tab PO DAILY Klor-Con M10 (Potassium Chloride) 10 Meq Tab.er.prt 10 Meq PO DAILY Vital Signs Vital Signs Date Time Temp Pulse Resp B/P (MAP) Pulse Ox O2 Delivery O2 Flow Rate FiO2 12/02/19 16:25 79 16 122/61 (81) 99 Nasal Cannula 2.0 12/02/19 12:21 98.4 98.4 Labs Laboratory Tests Test 12/02/19 05:35 12/02/19 06:05 12/02/19 06:15 12/02/19 07:50 White Blood Count 12.6 x10^3/uL (4.0-11.0) Red Blood Count 3.79 x10^6/uL (3.50-5.40) Hemoglobin 10.7 g/dL (12.0-15.5) Hematocrit 32.7 % (36.0-47.0) Mean Corpuscular Volume 86 fL (79-100) Mean Corpuscular Hemoglobin 28 pg (25-35) Mean Corpuscular Hemoglobin Concent 33 g/dL (31-37) Red Cell Distribution Width 20.1 % (11.5-14.5) Platelet Count 299 x10^3/uL (140-400) Neutrophils (%) (Auto) 85 % (31-73) Lymphocytes (%) (Auto) 6 % (24-48) Monocytes (%) (Auto) 8 % (0-9) Eosinophils (%) (Auto) 1 % (0-3) Basophils (%) (Auto) 0 % (0-3) Neutrophils # (Auto) 10.8 x10^3/uL (1.8-7.7) Lymphocytes # (Auto) 0.8 x10^3/uL (1.0-4.8) Monocytes # (Auto) 1.0 x10^3/uL (0.0-1.1) Eosinophils # (Auto) 0.1 x10^3/uL (0.0-0.7) Basophils # (Auto) 0.0 x10^3/uL (0.0-0.2) Segmented Neutrophils % 89 % (35-66) Lymphocytes % 3 % (24-48) Monocytes % 8 % (0-10) Platelet Estimate Adequate (ADEQUATE) Polychromasia Slight Anisocytosis Mod Tear Drop Cells Occ Sodium Level 137 mmol/L (136-145) Potassium Level 4.1 mmol/L (3.5-5.1) Chloride Level 100 mmol/L (98-107) Carbon Dioxide Level 34 mmol/L (21-32) Anion Gap 3 (6-14) Blood Urea Nitrogen 17 mg/dL (7-20) Creatinine 0.9 mg/dL (0.6-1.0) Estimated GFR (Cockcroft-Gault) 60.2 BUN/Creatinine Ratio 19 (6-20) Glucose Level 165 mg/dL (70-99) Calcium Level 10.2 mg/dL (8.5-10.1) Magnesium Level 1.8 mg/dL (1.8-2.4) Total Bilirubin 0.6 mg/dL (0.2-1.0) Aspartate Amino Transf (AST/SGOT) 16 U/L (15-37) Alanine Aminotransferase (ALT/SGPT) 8 U/L (14-59) Alkaline Phosphatase 82 U/L (46-116) Creatine Kinase 24 U/L (26-192) Creatine Kinase MB (Mass) < 0.5 ng/mL (0.0-3.6) Creatine Kinase MB Relative Index % (0-4) Troponin I Quantitative < 0.017 ng/mL (0.000-0.055) Total Protein 6.1 g/dL (6.4-8.2) Albumin 2.1 g/dL (3.4-5.0) Albumin/Globulin Ratio 0.5 (1.0-1.7) Lipase 37 U/L (73-393) Urine Collection Type Unknown Urine Color Yellow Urine Clarity Clear Urine pH 6.0 (<5.0-8.0) Urine Specific [place] 1.020 (1.000-1.030) Urine Protein Negative mg/dL (NEG-TRACE) Urine Glucose (UA) Negative mg/dL (NEG) Urine Ketones (Stick) Negative mg/dL (NEG) Urine Blood Moderate (NEG) Urine Nitrite Negative (NEG) Urine Bilirubin Negative (NEG) Urine Urobilinogen Dipstick 1.0 mg/dL (0.2 mg/dL) Urine Leukocyte Esterase Moderate (NEG) Urine RBC 20-40 /HPF (0-2) Urine WBC 11-20 /HPF (0-4) Urine Squamous Epithelial Cells Mod /LPF Urine Bacteria Moderate /HPF (0-FEW) Urine Mucus Mod /LPF Urine Yeast Present /HPF Lactic Acid Level 1.6 mmol/L (0.4-2.0) 0.9 mmol/L (0.4-2.0) Prothrombin Time > 120.0 SEC (11.7-14.0) Prothromb Time International Ratio > 15.0 (0.8-1.1) Activated Partial Thromboplast Time 94 SEC (24-38) Test 12/02/19 08:15 12/02/19 12:15 12/02/19 14:47 Glucose (Fingerstick) 188 mg/dL (70-99) White Blood Count 11.0 x10^3/uL (4.0-11.0) Red Blood Count 3.37 x10^6/uL (3.50-5.40) Hemoglobin 9.7 g/dL (12.0-15.5) Hematocrit 29.5 % (36.0-47.0) Mean Corpuscular Volume 88 fL (79-100) Mean Corpuscular Hemoglobin 29 pg (25-35) Mean Corpuscular Hemoglobin Concent 33 g/dL (31-37) Red Cell Distribution Width 20.8 % (11.5-14.5) Platelet Count 231 x10^3/uL (140-400) Neutrophils (%) (Auto) 88 % (31-73) Lymphocytes (%) (Auto) 3 % (24-48) Monocytes (%) (Auto) 8 % (0-9) Eosinophils (%) (Auto) 0 % (0-3) Basophils (%) (Auto) 0 % (0-3) Neutrophils # (Auto) 9.7 x10^3/uL (1.8-7.7) Lymphocytes # (Auto) 0.4 x10^3/uL (1.0-4.8) Monocytes # (Auto) 0.9 x10^3/uL (0.0-1.1) Eosinophils # (Auto) 0.0 x10^3/uL (0.0-0.7) Basophils # (Auto) 0.0 x10^3/uL (0.0-0.2) Prothrombin Time 26.2 SEC (11.7-14.0) 22.3 SEC (11.7-14.0) Prothromb Time International Ratio 2.4 (0.8-1.1) 2.0 (0.8-1.1) Laboratory Tests Test 12/02/19 05:35 12/02/19 06:05 12/02/19 06:15 12/02/19 07:50 White Blood Count 12.6 x10^3/uL (4.0-11.0) Red Blood Count 3.79 x10^6/uL (3.50-5.40) Hemoglobin 10.7 g/dL (12.0-15.5) Hematocrit 32.7 % (36.0-47.0) Mean Corpuscular Volume 86 fL (79-100) Mean Corpuscular Hemoglobin 28 pg (25-35) Mean Corpuscular Hemoglobin Concent 33 g/dL (31-37) Red Cell Distribution Width 20.1 % (11.5-14.5) Platelet Count 299 x10^3/uL (140-400) Neutrophils (%) (Auto) 85 % (31-73) Lymphocytes (%) (Auto) 6 % (24-48) Monocytes (%) (Auto) 8 % (0-9) Eosinophils (%) (Auto) 1 % (0-3) Basophils (%) (Auto) 0 % (0-3) Neutrophils # (Auto) 10.8 x10^3/uL (1.8-7.7) Lymphocytes # (Auto) 0.8 x10^3/uL (1.0-4.8) Monocytes # (Auto) 1.0 x10^3/uL (0.0-1.1) Eosinophils # (Auto) 0.1 x10^3/uL (0.0-0.7) Basophils # (Auto) 0.0 x10^3/uL (0.0-0.2) Segmented Neutrophils % 89 % (35-66) Lymphocytes % 3 % (24-48) Monocytes % 8 % (0-10) Platelet Estimate Adequate (ADEQUATE) Polychromasia Slight Anisocytosis Mod Tear Drop Cells Occ Sodium Level 137 mmol/L (136-145) Potassium Level 4.1 mmol/L (3.5-5.1) Chloride Level 100 mmol/L (98-107) Carbon Dioxide Level 34 mmol/L (21-32) Anion Gap 3 (6-14) Blood Urea Nitrogen 17 mg/dL (7-20) Creatinine 0.9 mg/dL (0.6-1.0) Estimated GFR (Cockcroft-Gault) 60.2 BUN/Creatinine Ratio 19 (6-20) Glucose Level 165 mg/dL (70-99) Calcium Level 10.2 mg/dL (8.5-10.1) Magnesium Level 1.8 mg/dL (1.8-2.4) Total Bilirubin 0.6 mg/dL (0.2-1.0) Aspartate Amino Transf (AST/SGOT) 16 U/L (15-37) Alanine Aminotransferase (ALT/SGPT) 8 U/L (14-59) Alkaline Phosphatase 82 U/L (46-116) Creatine Kinase 24 U/L (26-192) Creatine Kinase MB (Mass) < 0.5 ng/mL (0.0-3.6) Creatine Kinase MB Relative Index % (0-4) Troponin I Quantitative < 0.017 ng/mL (0.000-0.055) Total Protein 6.1 g/dL (6.4-8.2) Albumin 2.1 g/dL (3.4-5.0) Albumin/Globulin Ratio 0.5 (1.0-1.7) Lipase 37 U/L (73-393) Urine Collection Type Unknown Urine Color Yellow Urine Clarity Clear Urine pH 6.0 (<5.0-8.0) Urine Specific [place] 1.020 (1.000-1.030) Urine Protein Negative mg/dL (NEG-TRACE) Urine Glucose (UA) Negative mg/dL (NEG) Urine Ketones (Stick) Negative mg/dL (NEG) Urine Blood Moderate (NEG) Urine Nitrite Negative (NEG) Urine Bilirubin Negative (NEG) Urine Urobilinogen Dipstick 1.0 mg/dL (0.2 mg/dL) Urine Leukocyte Esterase Moderate (NEG) Urine RBC 20-40 /HPF (0-2) Urine WBC 11-20 /HPF (0-4) Urine Squamous Epithelial Cells Mod /LPF Urine Bacteria Moderate /HPF (0-FEW) Urine Mucus Mod /LPF Urine Yeast Present /HPF Lactic Acid Level 1.6 mmol/L (0.4-2.0) 0.9 mmol/L (0.4-2.0) Prothrombin Time > 120.0 SEC (11.7-14.0) Prothromb Time International Ratio > 15.0 (0.8-1.1) Activated Partial Thromboplast Time 94 SEC (24-38) Test 12/02/19 08:15 12/02/19 12:15 12/02/19 14:47 Glucose (Fingerstick) 188 mg/dL (70-99) White Blood Count 11.0 x10^3/uL (4.0-11.0) Red Blood Count 3.37 x10^6/uL (3.50-5.40) Hemoglobin 9.7 g/dL (12.0-15.5) Hematocrit 29.5 % (36.0-47.0) Mean Corpuscular Volume 88 fL (79-100) Mean Corpuscular Hemoglobin 29 pg (25-35) Mean Corpuscular Hemoglobin Concent 33 g/dL (31-37) Red Cell Distribution Width 20.8 % (11.5-14.5) Platelet Count 231 x10^3/uL (140-400) Neutrophils (%) (Auto) 88 % (31-73) Lymphocytes (%) (Auto) 3 % (24-48) Monocytes (%) (Auto) 8 % (0-9) Eosinophils (%) (Auto) 0 % (0-3) Basophils (%) (Auto) 0 % (0-3) Neutrophils # (Auto) 9.7 x10^3/uL (1.8-7.7) Lymphocytes # (Auto) 0.4 x10^3/uL (1.0-4.8) Monocytes # (Auto) 0.9 x10^3/uL (0.0-1.1) Eosinophils # (Auto) 0.0 x10^3/uL (0.0-0.7) Basophils # (Auto) 0.0 x10^3/uL (0.0-0.2) Prothrombin Time 26.2 SEC (11.7-14.0) 22.3 SEC (11.7-14.0) Prothromb Time International Ratio 2.4 (0.8-1.1) 2.0 (0.8-1.1) Allergies Allergies Coded Allergies Type Severity Reaction Last Updated Verified phenazopyridine Allergy Intermediate 12/07/15 Yes strawberry Allergy Intermediate hives 11/22/19 Yes Disposition/Orders: Other (TRANFER TO [facility] BY [facility]) FULBRCARINE,CARLOS W MD December 02, 2019 21:23
== END 2019-12-02 17:37 | disposition short-term general hospital (02) | DRG 871 ==
LOC: ER 05:36 → CVICU 07:58
PROVIDERS: ADMIT Family Medicine; ATTEND Family Medicine
PROC: 30233K1 Transfusion of Nonautologous Frozen Plasma into Peripheral Vein, Percutaneous Approach (ICD-10-PCS; principal; 2019-12-02)
DX: A41.9 Sepsis, unspecified organism (principal); K66.1 Hemoperitoneum; K68.19 Other retroperitoneal abscess; E43 Unspecified severe protein-calorie malnutrition; S22.32XA Fracture of one rib, left side, initial encounter for closed fracture; I50.32 Chronic diastolic (congestive) heart failure; N39.0 Urinary tract infection, site not specified; E04.2 Nontoxic multinodular goiter; E11.9 Type 2 diabetes mellitus without complications; E27.8 Other specified disorders of adrenal gland; E66.9 Obesity, unspecified; E78.00 Pure hypercholesterolemia, unspecified; E78.5 Hyperlipidemia, unspecified; I11.0 Hypertensive heart disease with heart failure; I48.91 Unspecified atrial fibrillation; J44.9 Chronic obstructive pulmonary disease, unspecified; K11.5 Sialolithiasis; M19.90 Unspecified osteoarthritis, unspecified site; M50.90 Cervical disc disorder, unspecified, unspecified cervical region; N20.0 Calculus of kidney; N28.1 Cyst of kidney, acquired; Z68.36 Body mass index [BMI] 36.0-36.9, adult; Z88.8 Allergy status to other drugs, medicaments and biological substances; Z91.018 Allergy to other foods; Z87.891 Personal history of nicotine dependence; Z86.73 Personal history of transient ischemic attack (TIA), and cerebral infarction without residual deficits; Z86.718 Personal history of other venous thrombosis and embolism; Z79.01 Long term (current) use of anticoagulants; Z82.5 Family history of asthma and other chronic lower respiratory diseases; Z82.49 Family history of ischemic heart disease and other diseases of the circulatory system
CPT/HCPCS: 36415; 70450; 72125; 74177; 80053; 81001; 82553; 82962; 83605; 83690; 83735; 84484; 85007; 85025; 85610; 85730; 86850; 86900; 86901; 86927; 87040; 87086; 93005; J2405; J2543; J2765; J3430; J3490; J7030; J7060; P9017; Q9967; G0378